=== PATIENT | male | born 1940 | race Caucasian/White ===

== ENCOUNTER 2017-05-19 19:39 | Observation (INO) | payer MEDICARE, OTHER ==
[2017-05-19] MEDS ORDERED: Budesonide 0.5 MG/2 ML Neb Susp ONE (19:51)
[2017-05-19] MEDS ORDERED: methylPREDNISolone Sodium Succinate 125 MG/2 ML SDV ONE (19:52)
[2017-05-19] MEDS ORDERED: Budesonide 0.5 MG/2 ML Neb Susp NEB ONE (20:00)
[2017-05-19] MEDS ORDERED: methylPREDNISolone Sodium Succinate 125 MG/2 ML SDV IVPUSH ONE (20:00)
--- NOTE | 2017-05-19 20:11 | EDM.PDOC ---
ED HPI GENERAL MEDICAL PROBLEM - General Chief Complaint: Respiratory Problem Stated Complaint: difficulty breathing Time Seen by Provider: 05/19/17 20:00 Source of Information: Reports: Patient, RN, Significant Other History Limitations: Reports: No Limitations - History of Present Illness INITIAL COMMENTS - FREE TEXT/NARRATIVE: Patient detention history of asthma-COPD was sitting at restaurant having dinner with girlfriend when he started coughing and was unable to stop coughing or catch his breath. He denies aspiration of food. He states did take his pulmicort this am and has used albuterol inhaler about 3 times since the incident. The ambulance was called and patient was transferred here for further evaluation and treatment. Onset: Today, Sudden Onset Date: 05/19/17 Onset Time: 19:00 Duration: Hour(s):, Chronic, Other (Past week with episodes of spasmodic coughing spells. ) Quality: Reports: Same as Previous Episode Severity: Mild Improves with: Reports: Rest, Other (Sitting on floor) Worsens with: Reports: Movement Associated Symptoms: Reports: Cough. Denies: Chest Pain, cough w sputum Treatments SORTER PRICER: Reports: Home Treatments, Other (see below) Other Treatments SORTER PRICER: albuterol treatments x2 with oxygen per non-rebreather mask - Related Data Allergies Allergy/AdvReac Type Severity Reaction Status Date / Time No Known Allergies Allergy Verified 05/19/17 19:51 Past Medical History HEENT History: Reports: Impaired Vision Cardiovascular History: Reports: Hypertension, SOB on Exertion Respiratory History: Reports: Asthma, COPD, SOB Gastrointestinal History: Reports: Other (See Below) (Stomach Cancer) Genitourinary History: Reports: Prostate Disorder Oncologic (Cancer) History: Reports: Prostate Dermatologic History: Reports: None Social & Family History - Family History Family Medical History: Noncontributory - Tobacco Use Smoking Status *Q: Former Smoker Tobacco Use Within Last Twelve Months: No Years of Tobacco use: 50 Used Tobacco, but Quit: Yes - Tobacco Core Measures Tobacco Use/Smoking Within Last 30 Days: Yes - Caffeine Use Caffeine Use: Reports: Coffee - Alcohol Use Alcohol Use History: Yes Date/Time of Last Drink Comment: today 3 beers and mixed drink Alcohol Use in Last Twelve Months: Yes - Recreational Drug Use Recreational Drug Use: No - Living Situation & Occupation Living situation: Reports: Occupation: Retired ([employer]) ED ROS GENERAL - Review of Systems Review Of Systems: See Below Constitutional: Reports: No Symptoms HEENT: Reports: No Symptoms Respiratory: Reports: Shortness of Breath, Wheezing, Cough Cardiovascular: Reports: No Symptoms Endocrine: Reports: No Symptoms GI/Abdominal: Reports: No Symptoms : Reports: No Symptoms Musculoskeletal: Reports: No Symptoms Skin: Reports: No Symptoms Neurological: Reports: No Symptoms Psychiatric: Reports: No Symptoms Hematologic/Lymphatic: Reports: No Symptoms Immunologic: Reports: No Symptoms ED EXAM, GENERAL - Physical Exam Exam: See Below Exam Limited By: No Limitations General Appearance: Alert, WD/WN, Mild Distress Eye Exam: Bilateral Eye: EOMI, Normal Fundi, Normal Inspection, Other ( Conjunctiva Injected bilaterally) Ears: Normal External Exam Ear Exam: Bilateral Ear: Auricle Normal, Canal Normal, TM normal Nose: Normal Inspection, Normal Mucosa, No Blood Throat/Mouth: Normal Inspection, Normal Lips, Normal Teeth, Normal Gums, Normal Oropharynx, Normal Voice, No Airway Compromise Head: Atraumatic, Normocephalic Neck: Normal Inspection, Supple, Non-Tender, Full Range of Motion Respiratory/Chest: Decreased Breath Sounds, Wheezing (xpiratory), Accessory Muscle Use, Other (Barrel Chested) Cardiovascular: Normal Peripheral Pulses, Regular Rate, Rhythm, No Edema, No JVD Peripheral Pulses: 2+: Radial (L), Radial (R), Dorsalis Pedis (L), Dorsalis Pedis (R) GI/Abdominal: Non-Tender (Male) Exam: Deferred Rectal (Males) Exam: Deferred Back Exam: Normal Inspection, Full Range of Motion Extremities: Normal Inspection, Normal Range of Motion, Non-Tender, No Pedal Edema, Normal Capillary Refill. No: Rashid's Sign, Leg Pain Neurological: Alert, Oriented, CN II-XII Intact, Normal Cognition, Normal Gait, Normal Reflexes, No Motor/Sensory Deficits Psychiatric: Normal Affect, Normal Mood Skin Exam: Warm, Dry, Intact, Normal Color, No Rash Lymphatic: No Adenopathy Course - Vital Signs Last Recorded V/S: Last Vital Signs Temp 36.6 C 05/19/17 20:15 Pulse 65 05/19/17 20:28 Resp 24 H 05/19/17 20:28 BP 128/65 05/19/17 20:15 Pulse Ox 98 05/19/17 20:28 - Orders/Labs/Meds Orders: Active Orders 24 hr Category Date Time Status RT Aerosol Therapy [RC] ASDIRECTED Care 05/19/17 20:00 Active RT Post Treatment Assessment [RC] Click To Edit Care 05/19/17 20:25 Active RT Pre-Treatment Assessment [RC] Click To Edit Care 05/19/17 20:25 Active Chest 2V [CR] Stat Exams 05/19/17 20:04 Taken DD [D-DIMER QUANTITATIVE] [COAG] Stat Lab 05/19/17 20:03 Ordered Levofloxacin/Dextrose 5%-Water [Levaquin in D5W 500 MG/ Med 05/19/17 20:26 Active 100 ML] 500 mg Premix Bag 1 bag IV ONETIME Medication Orders Levofloxacin/Dextrose 500 mg/ (Premix) 100 mls @ 100 mls/hr IV ONETIME ONE Stop: 05/19/17 21:25 Last Admin: 05/19/17 20:33 Dose: 100 mls/hr Labs: Laboratory Tests 05/19/17 05/19/17 Range/Units 20:12 20:12 WBC 7.8 (5.0-10.0) 10^3/uL RBC 3.96 L (4.50-6.00) 10^6/uL Hgb 11.7 L (14.0-18.0) g/dL Hct 33.7 L (40.0-54.0) % MCV 85.1 (82.0-94.0) fL MCH 29.5 (27.0-32.0) pg MCHC 34.7 (33.0-38.0) g/dL RDW Coeff of Gabriel 13.0 (11.0-15.0) % Plt Count 178 (150-400) 10^3/uL Neut % (Auto) 43.8 (35-85) % Lymph % (Auto) 37.5 (10-55) % Page % (Auto) 10.5 (0-16) % Eos % (Auto) 7.7 H (0-5) % Baso % (Auto) 0.5 (0-3) % Neut # (Auto) 3.42 (1.80-7.00) 10^3/uL Lymph # (Auto) 2.93 (1.00-4.80) 10^3/uL Page # (Auto) 0.82 H (0.00-0.80) 10^3/uL Eos # (Auto) 0.60 H (0.00-0.45) 10^3/uL Baso # (Auto) 0.04 10^3/uL Sodium 133 L (136-145) mEq/L Potassium 4.0 (3.5-5.0) mEq/L Chloride 97 L (98-106) mEq/L Carbon Dioxide 25 (21-32) mmol/L BUN 18 (7-18) mg/dL Creatinine 1.4 H (0.7-1.3) mg/dL Est Cr Clr Drug Dosing 33.58 mL/min Estimated GFR (MDRD) 49 L (>=60) mL/min Glucose 105 H (75-99) mg/dL Calcium 8.9 (8.4-10.1) mg/dL Total Bilirubin 0.5 (0.0-1.0) mg/dL AST 26 (15-37) U/L ALT 28 (12-78) U/L Alkaline Phosphatase 61 (46-116) U/L C-Reactive Protein < 0.2 L (0.2-0.8) mg/dL Total Protein 6.6 (6.4-8.2) g/dL Albumin 3.5 (3.4-5.0) g/dL Meds: Medications Generic Name Dose Route Start Last Admin Trade Name Freq PRN Reason Stop Dose Admin Levofloxacin/Dextrose 500 mg/ 100 mls @ 100 mls/hr 05/19/17 20:26 05/19/17 20 :33 Premix IV 05/19/17 21:25 100 mls/hr ONETIME ONE Administration Discontinued Medications Generic Name Dose Route Start Last Admin Trade Name Freq PRN Reason Stop Dose Admin Budesonide 0.5 mg 05/19/17 20:00 05/19/17 20:04 Pulmicort NEB 05/19/17 20:01 0.5 mg ONETIME ONE Administration Budesonide Confirm 05/19/17 19:51 05/19/17 20:04 Pulmicort Administered 05/19/17 19:52 Not Given Dose 0.5 mg .ROUTE .STK-MED ONE Ipratropium [place] 0.5 mg 05/19/17 20:25 05/19/17 20:27 Atrovent NEB 05/19/17 20:26 0.5 mg ONETIME ONE Administration Ipratropium [place] Confirm 05/19/17 20:18 05/19/17 20:31 Atrovent Administered 05/19/17 20:19 Not Given Dose 0.5 mg .ROUTE .STK-MED ONE Methylprednisolone Sodium Succinate Confirm 05/19/17 19:52 05/19/17 20:04 Solu-Medrol Administered 05/19/17 19:53 Not Given Dose 125 mg .ROUTE .STK-MED ONE Methylprednisolone Sodium Succinate 125 mg 05/19/17 20:00 05/19/17 20:04 Solu-Medrol IVPUSH 05/19/17 20:01 125 mg STAT ONE Administration Departure - Departure Time of Disposition: 20:46 Disposition: Refer to Observation Clinical Impression: Exacerbation of asthma - Discharge Information Instructions: Chronic Obstructive Pulmonary Disease Exacerbation, [id number] Forms: ED Department Discharge - My Orders Last 24 Hours: My Active Orders 05/19/17 20:00 RT Aerosol Therapy [RC] ASDIRECTED 05/19/17 20:03 DD [D-DIMER QUANTITATIVE] [COAG] Stat 05/19/17 20:04 Chest 2V [CR] Stat 05/19/17 20:25 RT Post Treatment Assessment [RC] Click To Edit RT Pre-Treatment Assessment [RC] Click To Edit 05/19/17 20:26 Levofloxacin/Dextrose 5%-Water [Levaquin in D5W 500 MG/100 ML] 500 mg Premix Bag 1 bag IV ONETIME - Assessment/Plan Last 24 Hours: My Active Orders 05/19/17 20:00 RT Aerosol Therapy [RC] ASDIRECTED 05/19/17 20:03 DD [D-DIMER QUANTITATIVE] [COAG] Stat 05/19/17 20:04 Chest 2V [CR] Stat 05/19/17 20:25 RT Post Treatment Assessment [RC] Click To Edit RT Pre-Treatment Assessment [RC] Click To Edit 05/19/17 20:26 Levofloxacin/Dextrose 5%-Water [Levaquin in D5W 500 MG/100 ML] 500 mg Premix Bag 1 bag IV ONETIME Assessment:: 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 He denies aspiration of food. He denies chest pain or diaphoresis.He states did take his pulmicort this am and has used albuterol inhaler about 3 times since the incident. The ambulance was called and patient was transferred here for further evaluation and treatment. SVN with Pulmicort .5 mg given as well as Solumedrol 125 mg IV. Patient able to converse in full sentences. Saturations maintain 99% with noted expiratory wheezing. Persistant dry hacking cough noted. Incontinence of urine noted. Plan: Will admit for observation and aggressive pulmonary rehabilitation. IV Steroids IV antibiotic therapy Duo nebulizer treatment. Supplemental oxygen. Patient agrees with plan.
[2017-05-19] MEDS ORDERED: Ipratropium 0.02% 0.5 MG/2.5 ML Neb Soln ONE (20:18)
[2017-05-19] MEDS ORDERED: Ipratropium 0.02% 0.5 MG/2.5 ML Neb Soln NEB ONE (20:25)
[2017-05-19] MEDS ORDERED: Levofloxacin/Dextrose 5%-Water 500 MG in Premix Bag 1 BAG IV ONE (20:26)
[2017-05-19 20:29] LABS: CHLORIDE,CL 97 mEq/L (98-106); SODIUM,NA 133 mEq/L (136-145)
[2017-05-20] MEDS ORDERED: Sodium Chloride 0.9% 10 ML Syringe FLUSH PRN (00:17)
[2017-05-20] MEDS ORDERED: Enalapril 5 MG Tab PO SCH (08:00)
[2017-05-20] MEDS ORDERED: Verapamil 180 MG Tab.ER PO SCH (08:00)
[2017-05-20] MEDS: Cholecalciferol (Vitamin D3) 1,000 Unit Tab PO SCH (08:31)
[2017-05-20] MEDS: Enoxaparin 30 MG/0.3 ML Syringe SUBCUT SCH (08:31)
[2017-05-20] MEDS: PTOM-Hydrochlorothiazide 25 MG Tab PO SCH (08:31)
[2017-05-20] MEDS: Aspirin 81 MG Tab.EC PO SCH (08:32)
[2017-05-20] MEDS: Albuterol/Ipratropium 3.0-0.5 MG/3 ML Neb Soln NEB SCH ×4 (08:32→21:13)
[2017-05-20] MEDS: methylPREDNISolone Sodium Succinate 125 MG/2 ML SDV IVPUSH SCH ×2 (08:32→20:10)
--- NOTE | 2017-05-20 09:13 | PN ---
DATE: 05/20/2017 S: Jeovanny Earl is a 76-year-old gentleman came in with acute shortness of breath. He says he feels better today. O: NECK: Supple. CHEST: Occasional wheeze. CARDIAC: Sounds good. EXTREMITIES: No edema. ASSESSMENT: ASTHMA AND CHRONIC OBSTRUCTIVE PULMONARY DISEASE. P: Again, some IV steroids today and then we will get appropriate lab work including proBNP, probably an echo on him. TANNA/MARTITA /[id number]
[2017-05-21 07:19] VITALS: BP 158/79
[2017-05-21] MEDS ORDERED: VERAPAMIL 120 MG PO SCH (08:00)
[2017-05-21] MEDS ORDERED: ENALAPRIL 20 MG PO SCH (08:00)
[2017-05-21] MEDS: PTOM-Hydrochlorothiazide 25 MG Tab PO SCH (08:08)
[2017-05-21] MEDS: Aspirin 81 MG Tab.EC PO SCH (08:08)
[2017-05-21] MEDS: Enoxaparin 30 MG/0.3 ML Syringe SUBCUT SCH (08:09)
[2017-05-21] MEDS: methylPREDNISolone Sodium Succinate 125 MG/2 ML SDV IVPUSH SCH (08:11)
[2017-05-21] MEDS: Cholecalciferol (Vitamin D3) 1,000 Unit Tab PO SCH (08:12)
[2017-05-21] MEDS: Albuterol/Ipratropium 3.0-0.5 MG/3 ML Neb Soln NEB SCH (08:13)
--- NOTE | 2017-05-21 12:18 | DISCH ---
REASON FOR HOSPITALIZATION: Jeovanny Earl is an elderly gentleman came in with some mild asthma, COPD exacerbation. He is now started on IV fluids to IV steroids, responded nicely at the time of discharge. His lungs were relatively clear, said he felt great. Lab here in the hospital, CBC okay as his hemoglobin little low at 11.7. D-dimer mildly elevated at 0.32 and 0.36, probably from COPD. He had a low magnesium, so we did start him on magnesium oxide 500 mg daily. Renal functions were normal. Other than that he had a mildly elevated creatinine at 1.4. Chest x-ray revealed just some mild chronic inflammation. DISPOSITION: The patient is now discharged home. We will see him back in the clinic in about a week and then we will go over him. DISCHARGE MEDICATIONS: Home medications plus prednisone 20 daily for 5 days. DISCHARGE DIAGNOSIS: 1. ASTHMA WITH CHRONIC OBSTRUCTIVE PULMONARY DISEASE EXACERBATION. 2. HYPERTENSION. YOEL /[id number]
== END 2017-05-21 10:50 | disposition home or self-care (01) ==
LOC: CC.ED 19:39 → UNDOADMOB 20:49 → CC.MS 20:49 → CC.ED 21:04 → CC.MS 21:04 → UNDOADMOB 21:04 → CC.MS 23:56
PROVIDERS: ADMIT Nurse Practitioner; ATTEND General Practice
DX: J44.1 Chronic obstructive pulmonary disease with (acute) exacerbation (principal); I10 Essential (primary) hypertension; Z87.891 Personal history of nicotine dependence; Z79.82 Long term (current) use of aspirin; Z79.899 Other long term (current) drug therapy
CPT/HCPCS: 36415; 71020; 80053; 83735; 83880; 84443; 85025; 85379; 86140; 94640; 96374; 96375; 99285; A9270; J1650; J1956; J2930; 96365; 96372; 96376; 99217; 99220; 99225; G0378

== ENCOUNTER 2018-02-09 21:35 | Emergency (ER) | payer MEDICARE, OTHER, SELFPAY ==
[2018-02-09 22:15] VITALS: BP 163/77
[2018-02-09 22:23] LABS: CHLORIDE,CL 102 mEq/L (98-106); SODIUM,NA 138 mEq/L (136-145)
--- NOTE | 2018-02-09 22:27 | EDM.PDOC ---
ED HPI GENERAL MEDICAL PROBLEM - General Chief Complaint: Respiratory Problem Stated Complaint: difficulty breathing Time Seen by Provider: 02/09/18 21:50 Source of Information: Reports: Patient - History of Present Illness INITIAL COMMENTS - FREE TEXT/NARRATIVE: Jeovanny is a 77 year old male with PMH of COPD and hypertension who presents to the ED via [facility] with c/o shortness of breath. He reports that this evening he was just sitting there when he got more short of breath than normal. He reports it happened kind of suddenly. He reports that he then used his Symbicort inhaler. That didn't help much so he did a Duoneb. He reports he was still feeling SOB so he used his rescue inhaler. He then went and sat outside and was still feeling SOB, so he called EMS. He reports that he does admit that he got kind of anxious and this maybe contributed to his shortness of breath. He reports he has been feeling well. Reports he always has a chronic productive cough. Denies any chest pain, fever, chills, weakness, nausea, vomiting, abdominal pain, diarrhea, sinus congestion. ROS otherwise negative. Onset: Today, Sudden Onset Date: 02/09/18 Onset Time: 20:30 Location: Reports: Chest Improves with: Reports: Medication Associated Symptoms: Reports: Cough, cough w sputum, Shortness of Breath. Denies: Confusion, Chest Pain, Diaphoresis, Fever/Chills, Headaches, Loss of Appetite, Malaise, Nausea/Vomiting, Rash, Seizure, Syncope, Weakness - Related Data Allergies Allergy/AdvReac Type Severity Reaction Status Date / Time No Known Allergies Allergy Verified 02/09/18 21:50 Home Meds: Home Meds Albuterol [Proventil HFA] 2 puff INH Q4H PRN 05/19/17 [History] Albuterol/Ipratropium [DuoNeb 3.0-0.5 MG/3 ML] 3 ml NEB QIDRT neb 05/19/17 [Rx] Aspirin [Adult Low Dose Aspirin EC] 81 mg PO DAILY 05/19/17 [History] Budesonide/Formoterol Fumarate [Symbicort 160-4.5 Mcg Inhaler] 1 puff INH BID [History] Cholecalciferol (Vitamin D3) [Vitamin D3] 5,000 unit PO DAILY 05/19/17 [History] Hydrochlorothiazide 12.5 mg PO DAILY 05/19/17 [History] Enalapril [Vasotec] 20 mg PO DAILY 05/20/17 [History] Verapamil HCl [Calan SR] 60 mg PO DAILY 05/20/17 [History] Prednisone [IMW: predniSONE] 40 mg PO WITHBREAKFAST 5 Days #10 tab 02/09/18 [Rx] Past Medical History HEENT History: Reports: Impaired Vision Cardiovascular History: Reports: Hypertension, SOB on Exertion Respiratory History: Reports: Asthma, COPD, SOB Gastrointestinal History: Reports: GERD, PUD Genitourinary History: Reports: Prostate Disorder, Urinary Incontinence Musculoskeletal History: Reports: Arthritis, Back Pain, Chronic, Fracture Neurological History: Reports: Concussion Psychiatric History: Reports: Anxiety, Other (See Below) Other Psychiatric History: perpetual stress Oncologic (Cancer) History: Reports: Prostate Dermatologic History: Reports: None - Past Surgical History Cardiovascular Surgical History: Reports: None Respiratory Surgical History: Reports: None GI Surgical History: Reports: Appendectomy, Colonoscopy, Polypectomy, Other ( See Below) Other GI Surgeries/Procedures: "removed part of stomach with ulcers" Male Surgical History: Reports: Prostatectomy Neurological Surgical History: Reports: None Musculoskeletal Surgical History: Reports: None Social & Family History - Family History Family Medical History: Noncontributory - Tobacco Use Smoking Status *Q: Former Smoker Years of Tobacco use: 50 Used Tobacco, but Quit: Yes Month/Year Tobacco Last Used: 10 - Caffeine Use Caffeine Use: Reports: Coffee - Alcohol Use Days Per Week of Alcohol Use: 7 Number of Drinks Per Day: 4 Total Drinks Per Week: 28 - Recreational Drug Use Recreational Drug Use: No - Living Situation & Occupation Living situation: Reports: Occupation: Retired ( [employer]) ED ROS GENERAL - Review of Systems Review Of Systems: ROS reveals no pertinent complaints other than HPI. ED EXAM, GENERAL - Physical Exam Exam: See Below Exam Limited By: No Limitations General Appearance: Alert, WD/WN, No Apparent Distress Head: Atraumatic, Normocephalic Neck: Normal Inspection, Supple, Non-Tender, Full Range of Motion Respiratory/Chest: No Respiratory Distress, No Accessory Muscle Use, Chest Non- Tender, Decreased Breath Sounds, Prolonged Expiration. No: Wheezing, Accessory Muscle Use Cardiovascular: Normal Peripheral Pulses, Regular Rate, Rhythm, No Edema, No Gallop, No JVD, No Murmur, No Rub GI/Abdominal: Normal Bowel Sounds, Soft, Non-Tender, No Organomegaly, No Distention, No Abnormal Bruit, No Mass Back Exam: Normal Inspection, Full Range of Motion, NT Extremities: Normal Inspection, Normal Range of Motion, Non-Tender, Normal Capillary Refill, No Pedal Edema Neurological: Alert, Oriented, CN II-XII Intact, Normal Cognition, Normal Gait, Normal Reflexes, No Motor/Sensory Deficits Psychiatric: Normal Affect, Normal Mood Skin Exam: Warm, Dry, Intact, Normal Color, No Rash Lymphatic: No Adenopathy Course - Vital Signs Last Recorded V/S: Last Vital Signs Temp 97.8 F 02/09/18 21:47 Pulse 72 02/09/18 22:10 Resp 22 H 02/09/18 22:10 BP 163/77 H 02/09/18 22:10 Pulse Ox 97 02/09/18 22:10 - Orders/Labs/Meds Orders: Active Orders 24 hr Category Date Time Status EKG Documentation Completion [RC] STAT Care 02/09/18 21:35 Active Chest 2V [CR] Stat Exams 02/09/18 21:54 Taken EKG 12 Lead [EK] Routine Ther 02/09/18 21:54 Ordered Labs: Laboratory Tests 02/09/18 02/09/18 02/09/18 Range/Units 22:00 22:00 22:00 WBC 6.4 (5.0-10.0) 10^3/uL RBC 4.16 L (4.50-6.00) 10^6/uL Hgb 12.2 L (14.0-18.0) g/dL Hct 35.6 L (40.0-54.0) % MCV 85.6 (82.0-94.0) fL MCH 29.3 (27.0-32.0) pg MCHC 34.3 (33.0-38.0) g/dL RDW Coeff of Gabriel 12.7 (11.0-15.0) % Plt Count 240 (150-400) 10^3/uL Neut % (Auto) 53.9 (35-85) % Lymph % (Auto) 29.1 (10-55) % [place] % (Auto) 10.9 (0-16) % Eos % (Auto) 5.6 H (0-5) % Baso % (Auto) 0.5 (0-3) % Neut # (Auto) 3.47 (1.80-7.00) 10^3/uL Lymph # (Auto) 1.87 (1.00-4.80) 10^3/uL [place] # (Auto) 0.70 (0.00-0.80) 10^3/uL Eos # (Auto) 0.36 (0.00-0.45) 10^3/uL Baso # (Auto) 0.03 10^3/uL D-Dimer, Quantitative 0.55 H (0.00-0.50) Sodium 138 (136-145) mEq/L Potassium 3.6 (3.5-5.0) mEq/L Chloride 102 (98-106) mEq/L Carbon Dioxide 27 (21-32) mmol/L BUN 23 H (7-18) mg/dL Creatinine 1.5 H (0.7-1.3) mg/dL Est Cr Clr Drug Dosing 1.33 mL/min Estimated GFR (MDRD) 45 L (>=60) mL/min Glucose 143 H D (75-99) mg/dL Calcium 9.1 (8.4-10.1) mg/dL Total Bilirubin 0.4 (0.0-1.0) mg/dL AST 23 (15-37) U/L ALT 26 (12-78) U/L Alkaline Phosphatase 85 (46-116) U/L Lactate Dehydrogenase 159 (100-190) U/L Creatine Kinase 86 (35-232) U/L Troponin I < 0.017 (0.00-0.06) ng/mL C-Reactive Protein 0.7 (0.2-0.8) mg/dL Total Protein 7.0 (6.4-8.2) g/dL Albumin 3.5 (3.4-5.0) g/dL - Re-Assessments/Exams Free Text/Narrative Re-Assessment/Exam: Labs, EKG and CXR results discussed with patient and . Labs all stable. EKG shows NSR with RBBB. CXR looks clear other than COPD. Departure - Departure Time of Disposition: 22:48 Disposition: Home, Self-Care 01 Condition: Good Clinical Impression: COPD exacerbation - Discharge Information Instructions: Shortness of Breath, Adult, [id number], Chronic Obstructive Pulmonary Disease, [id number] Referrals: Linnea Nava PA-C [ED Midlevel Provider] - Forms: ED Department Discharge Additional Instructions: Continue previously prescribed inhalers and nebulizers as directed Prednisone daily x 5 days. Script was sent to [facility] in [place]. 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
== END 2018-02-09 23:00 | disposition home or self-care (01) ==
LOC: CC.ED 21:35
DX: J44.1 Chronic obstructive pulmonary disease with (acute) exacerbation (principal); I10 Essential (primary) hypertension; Z79.899 Other long term (current) drug therapy; Z87.891 Personal history of nicotine dependence
CPT/HCPCS: 36415; 71046; 80053; 82550; 83615; 84484; 85025; 85379; 86140; 93005; 99285

== ENCOUNTER 2018-07-30 18:32 | Inpatient (IN) | payer MEDICARE, SELFPAY ==
[~2018-07-30 18:32] MED LIST: Albuterol/Ipratropium 3.0-0.5 MG/3 ML Neb Soln NEB ONE; methylPREDNISolone Sodium Succinate 125 MG/2 ML SDV ONE
[2018-07-30] MEDS ORDERED: methylPREDNISolone Sodium Succinate 125 MG/2 ML SDV IVPUSH ONE (18:36)
[2018-07-30 19:08] LABS: CHLORIDE,CL 100 mEq/L (98-106); SODIUM,NA 138 mEq/L (136-145)
--- NOTE | 2018-07-30 20:23 | EDM.PDOC ---
ED HPI GENERAL MEDICAL PROBLEM - General Chief Complaint: Respiratory Problem Stated Complaint: SOB Time Seen by Provider: 07/30/18 18:32 Source of Information: Reports: Patient, EMS History Limitations: Reports: Respiratory Distress - History of Present Illness INITIAL COMMENTS - FREE TEXT/NARRATIVE: Patient presents per EMS with complaints of shortness of breath. States started struggling more about an hour ago. Did use his nebulizer treatment but didn't seem to notice any improvement. EMS did give a neb as well and put on CPAP and his sats did improve. He denies any fevers. Has been using his nebs and inhalers as scheduled. No increased cough from his norm. No chest pain. No increase in edema. Does take HCTZ and feels that that controls his swelling. Onset: Today, Gradual Duration: Hour(s): Location: Reports: Chest Severity: Severe Improves with: Reports: Medication Worsens with: Reports: Movement Associated Symptoms: Reports: Cough, Shortness of Breath. Denies: Confusion, Chest Pain, Fever/Chills, Nausea/Vomiting Treatments HAND POTTER: Reports: Breathing Treatments, Oxygen - Related Data Allergies Allergy/AdvReac Type Severity Reaction Status Date / Time No Known Allergies Allergy Verified 07/30/18 18:56 Home Meds: Home Meds Albuterol [Proventil HFA] 2 puff INH Q4H PRN 05/19/17 [History] Albuterol/Ipratropium [DuoNeb 3.0-0.5 MG/3 ML] 3 ml NEB QIDRT neb 05/19/17 [Rx] Aspirin [Adult Low Dose Aspirin EC] 81 mg PO DAILY 05/19/17 [History] Budesonide/Formoterol Fumarate [Symbicort 160-4.5 Mcg Inhaler] 2 puff INH BID [History] Cholecalciferol (Vitamin D3) [Vitamin D3] 5,000 unit PO DAILY 05/19/17 [History] Hydrochlorothiazide 12.5 mg PO DAILY 05/19/17 [History] Enalapril [Vasotec] 20 mg PO DAILY 05/20/17 [History] Verapamil HCl [Calan SR] 60 mg PO DAILY 05/20/17 [History] Past Medical History HEENT History: Reports: Impaired Vision Cardiovascular History: Reports: Hypertension, SOB on Exertion Respiratory History: Reports: Asthma, COPD, SOB Gastrointestinal History: Reports: GERD, PUD Genitourinary History: Reports: Prostate Disorder, Urinary Incontinence Musculoskeletal History: Reports: Arthritis, Back Pain, Chronic, Fracture Neurological History: Reports: Concussion Psychiatric History: Reports: Anxiety, Other (See Below) Other Psychiatric History: perpetual stress Oncologic (Cancer) History: Reports: Prostate Dermatologic History: Reports: None - Past Surgical History Cardiovascular Surgical History: Reports: None Respiratory Surgical History: Reports: None GI Surgical History: Reports: Appendectomy, Colonoscopy, Polypectomy, Other ( See Below) Other GI Surgeries/Procedures: "removed part of stomach with ulcers" Male Surgical History: Reports: Prostatectomy Neurological Surgical History: Reports: None Musculoskeletal Surgical History: Reports: None Social & Family History - Family History Family Medical History: Noncontributory - Tobacco Use Smoking Status *Q: Former Smoker Used Tobacco, but Quit: Yes Month/Year Tobacco Last Used: 12 years ago - Caffeine Use Caffeine Use: Reports: Coffee - Alcohol Use Days Per Week of Alcohol Use: 3 Number of Drinks Per Day: 2 Total Drinks Per Week: 6 - Recreational Drug Use Recreational Drug Use: No - Living Situation & Occupation Living situation: Reports: Occupation: Retired ([employer]) ED ROS GENERAL - Review of Systems Review Of Systems: See Below Constitutional: Reports: Malaise, Weakness, Fatigue. Denies: Fever, Chills HEENT: Denies: Ear Pain, Nose Pain, Throat Pain, Vertigo, Vision Change Respiratory: Reports: Shortness of Breath, Wheezing, Cough Cardiovascular: Denies: Chest Pain, Edema, Lightheadedness Endocrine: Reports: Fatigue GI/Abdominal: Denies: Abdominal Pain, Black Stool, Bloody Stool, Diarrhea, Nausea, Vomiting : Reports: No Symptoms Musculoskeletal: Reports: No Symptoms Skin: Reports: No Symptoms Neurological: Reports: Weakness ED EXAM, GENERAL - Physical Exam Exam: See Below Exam Limited By: Respiratory Distress General Appearance: Alert, WD/WN, Moderate Distress Ears: Normal External Exam, Normal TMs Nose: Normal Inspection, Normal Mucosa, No Blood Throat/Mouth: Normal Inspection, Normal Oropharynx Head: Normocephalic Neck: Normal Inspection, Supple, Non-Tender Respiratory/Chest: Respiratory Distress, Wheezing Cardiovascular: Regular Rate, Rhythm GI/Abdominal: Normal Bowel Sounds, Soft, Non-Tender Extremities: Normal Inspection, No Pedal Edema Neurological: Alert, Oriented Skin Exam: Warm, Dry Course - Vital Signs Last Recorded V/S: Last Vital Signs Temp 97.5 F 07/30/18 20:08 Pulse 91 07/30/18 20:08 Resp 20 07/30/18 20:08 BP 135/57 L 07/30/18 20:08 Pulse Ox 94 L 07/30/18 20:08 - Orders/Labs/Meds Orders: Active Orders 24 hr Category Date Time Status RT Aerosol Therapy [RC] ASDIRECTED Care 07/30/18 19:30 Active Chest 1V Frontal [CR] Stat Exams 07/30/18 18:37 Taken EKG 12 Lead [EK] Stat Ther 07/30/18 18:37 Stop Req Medication Orders Acetaminophen (Tylenol) 650 mg PO Q4H PRN PRN Reason: Pain (Mild 1-3)/fever Albuterol/Ipratropium (Duoneb 3.0-0.5 Mg/3 Ml) 3 ml NEB QIDRT DYLAN Albuterol/Ipratropium (Duoneb 3.0-0.5 Mg/3 Ml) 3 ml NEB Q4H PRN PRN Reason: Dyspnea Aspirin (Halfprin) 81 mg PO DAILY [facility] Ceftriaxone Sodium (Rocephin) 1 gm IVPUSH Q24H [facility] Last Admin: 07/30/18 21:41 Dose: 1 gm Cholecalciferol (Vitamin D3) 5,000 units PO DAILY [facility] Enalapril Maleate (Vasotec) 20 mg PO DAILY [facility] Enoxaparin Sodium (Lovenox) 40 mg SUBCUT Q24H [facility] Last Admin: 07/30/18 21:46 Dose: 40 mg Hydrochlorothiazide (Hydrochlorothiazide) 12.5 mg PO DAILY [facility] Azithromycin 500 mg/ Sodium (Chloride) 250 mls @ 250 mls/hr IV Q24H [facility] Last Admin: 07/30/18 21:47 Dose: 250 mls/hr Methylprednisolone Sodium Succinate (Solu-Medrol) 62.5 mg IVPUSH Q12H [facility] Mometasone Furoate/Formoterol Fumar (Dulera 200-5 Mcg) 2 puff IH BID [facility] Non-Formulary Medication (Verapamil Hcl [Calan Sr]) 60 mg PO DAILY [facility] Ondansetron HCl (Zofran Odt) 4 mg PO Q4H PRN PRN Reason: nausea, able to take PO Sodium Chloride (Saline Flush) 10 ml FLUSH ASDIRECTED PRN PRN Reason: Keep Vein Open Temazepam (Restoril) 15 mg PO BEDTIME PRN PRN Reason: Sleep Labs: Laboratory Tests 07/30/18 07/30/18 07/30/18 Range/Units 18:45 18:45 18:45 WBC 8.8 (5.0-10.0) 10^3/uL RBC 4.22 L (4.50-6.00) 10^6/uL Hgb 12.3 L (14.0-18.0) g/dL Hct 35.4 L (40.0-54.0) % MCV 83.9 (82.0-94.0) fL MCH 29.1 (27.0-32.0) pg MCHC 34.7 (33.0-38.0) g/dL RDW Coeff of Gabriel 13.6 (11.0-15.0) % Plt Count 216 (150-400) 10^3/uL Neut % (Auto) 49.3 (35-85) % Lymph % (Auto) 37.1 (10-55) % [place] % (Auto) 9.2 (0-16) % Eos % (Auto) 4.1 (0-5) % Baso % (Auto) 0.3 (0-3) % Neut # (Auto) 4.31 (1.80-7.00) 10^3/uL Lymph # (Auto) 3.25 (1.00-4.80) 10^3/uL [place] # (Auto) 0.81 H (0.00-0.80) 10^3/uL Eos # (Auto) 0.36 (0.00-0.45) 10^3/uL Baso # (Auto) 0.03 10^3/uL D-Dimer, Quantitative 0.46 (0.00-0.50) Sodium 138 (136-145) mEq/L Potassium 4.0 (3.5-5.0) mEq/L Chloride 100 (98-106) mEq/L Carbon Dioxide 25 (21-32) mmol/L BUN 23 H (7-18) mg/dL Creatinine 1.5 H (0.7-1.3) mg/dL Est Cr Clr Drug Dosing 33.44 mL/min Estimated GFR (MDRD) 45 L (>=60) mL/min Glucose 105 H D (75-99) mg/dL Calcium 9.2 (8.4-10.1) mg/dL Total Bilirubin 0.6 (0.0-1.0) mg/dL AST 39 H (15-37) U/L ALT 43 (12-78) U/L Alkaline Phosphatase 77 (46-116) U/L Lactate Dehydrogenase 180 (100-190) U/L Creatine Kinase 165 (35-232) U/L Troponin I < 0.017 (0.00-0.06) ng/mL C-Reactive Protein < 0.2 L (0.2-0.8) mg/dL NT-Pro-B Natriuret Pep 147 (0-1000) pg/mL Total Protein 6.9 (6.4-8.2) g/dL Albumin 3.7 (3.4-5.0) g/dL Meds: Medications Generic Name Dose Route Start Last Admin Trade Name Freq PRN Reason Stop Dose Admin Acetaminophen 650 mg 07/30/18 20:58 Tylenol PO Q4H PRN Pain (Mild 1-3)/fever Albuterol/Ipratropium 3 ml 07/31/18 08:00 Duoneb 3.0-0.5 Mg/3 Ml NEB QIDRT DYLAN Albuterol/Ipratropium 3 ml 07/30/18 21:50 Duoneb 3.0-0.5 Mg/3 Ml NEB Q4H PRN Dyspnea Aspirin 81 mg 07/31/18 08:00 Halfprin PO DAILY [facility] Ceftriaxone Sodium 1 gm 07/30/18 21:00 07/30/18 21:41 Rocephin IVPUSH 1 gm Q24H DYLAN Administration Cholecalciferol 5,000 units 07/31/18 08:00 Vitamin D3 PO DAILY [facility] Enalapril Maleate 20 mg 07/31/18 08:00 Vasotec PO DAILY [facility] Enoxaparin Sodium 40 mg 07/30/18 21:00 07/30/18 21:46 Lovenox SUBCUT 40 mg Q24H DYLAN Administration Hydrochlorothiazide 12.5 mg 07/31/18 08:00 Hydrochlorothiazide PO DAILY [facility] Azithromycin 500 mg/ Sodium 250 mls @ 250 mls/hr 07/30/18 21:00 07/30/18 21: 47 Chloride IV 250 mls/hr Q24H DYLAN Administration Methylprednisolone Sodium Succinate 62.5 mg 07/31/18 08:00 Solu-Medrol IVPUSH Q12H [facility] Mometasone Furoate/Formoterol Fumar 2 puff 07/31/18 08:00 Dulera 200-5 Mcg IH BID DYLAN Non-Formulary Medication 60 mg 07/31/18 08:00 Verapamil Hcl [Calan Sr] PO DAILY [facility] Ondansetron HCl 4 mg 07/30/18 20:58 Zofran Odt PO Q4H PRN nausea, able to take PO Sodium Chloride 10 ml 07/30/18 20:58 Saline Flush FLUSH ASDIRECTED PRN Keep Vein Open Temazepam 15 mg 07/30/18 20:58 Restoril PO BEDTIME PRN Sleep Discontinued Medications Generic Name Dose Route Start Last Admin Trade Name Freq PRN Reason Stop Dose Admin Albuterol/Ipratropium 9 ml 07/30/18 18:32 07/30/18 19:31 Duoneb 3.0-0.5 Mg/3 Ml NEB 07/30/18 18:33 9 ml ONETIME ONE Administration Albuterol/Ipratropium 3 ml 07/30/18 21:23 07/30/18 21:49 Duoneb 3.0-0.5 Mg/3 Ml NEB 07/30/18 21:24 3 ml ONETIME ONE Administration Methylprednisolone Sodium Succinate 125 mg 07/30/18 18:36 07/30/18 18:36 Solu-Medrol IVPUSH 07/30/18 18:37 125 mg NOW ONE Administration Methylprednisolone Sodium Succinate Confirm 07/30/18 18:25 07/30/18 19:26 Solu-Medrol Administered 07/30/18 18:26 Not Given Dose 125 mg .ROUTE .STK-MED ONE Methylprednisolone Sodium Succinate 62.5 mg 07/30/18 20:58 07/30/18 22:09 Solu-Medrol IVPUSH Not Given Q12H [facility] - Re-Assessments/Exams Free Text/Narrative Re-Assessment/Exam: 07/30/18 Patient given consecutive neb treatments and solu medrol and did respond nicely. Oxygen sats maintaining at 95-96 on 2 liters after breathing under better control. Departure - Departure Time of Disposition: 19:20 Disposition: Admitted As Inpatient 64 Condition: Fair Clinical Impression: COPD exacerbation - Discharge Information *PRESCRIPTION DRUG MONITORING PROGRAM REVIEWED*: No *COPY OF PRESCRIPTION DRUG MONITORING REPORT IN PATIENT ARLIN: No - Problem List & Annotations (1) COPD exacerbation SNOMED Code(s): 454526356 Code(s): J44.1 - CHRONIC OBSTRUCTIVE PULMONARY DISEASE W (ACUTE) EXACERBATION Status: Acute Priority: High Current Visit: Yes - Problem List Review Problem List Initiated/Reviewed/Updated: Yes - My Orders Last 24 Hours: My Active Orders 07/30/18 18:37 Chest 1V Frontal [CR] Stat EKG 12 Lead [EK] Stat 07/30/18 19:30 RT Aerosol Therapy [RC] ASDIRECTED - Assessment/Plan Admission H&P: Please use this note as an admission H&P Last 24 Hours: My Active Orders 07/30/18 18:37 Chest 1V Frontal [CR] Stat EKG 12 Lead [EK] Stat 07/30/18 19:30 RT Aerosol Therapy [RC] ASDIRECTED Assessment:: COPD Exacerbation Plan: Patient admitted inpatient for COPD Exacerbation. Will start IV Solu Medrol, nebs, rocephin and zithromax.
[2018-07-30] MEDS ORDERED: Sodium Chloride 0.9% 10 ML Syringe FLUSH PRN (20:58)
[2018-07-30] MEDS ORDERED: Acetaminophen 325 MG Tab PO PRN (20:58)
[2018-07-30] MEDS ORDERED: methylPREDNISolone Sodium Succinate 125 MG/2 ML SDV IVPUSH SCH (20:58)
[2018-07-30] MEDS ORDERED: Ondansetron 4 MG Tab.DIS PO PRN (20:58)
[2018-07-30] MEDS ORDERED: Temazepam 15 MG Cap PO PRN (20:58)
[2018-07-30] MEDS ORDERED: Albuterol/Ipratropium 3.0-0.5 MG/3 ML Neb Soln NEB ONE (21:23)
[2018-07-30] MEDS: cefTRIAXone 1 GM Vial IVPUSH SCH (21:41)
[2018-07-30] MEDS: Enoxaparin 40 MG/0.4 ML Syringe SUBCUT SCH (21:46)
[2018-07-30] MEDS: Azithromycin 500 MG in Sodium Chloride 0.9% 250 ML IV SCH (21:47)
[2018-07-30] MEDS ORDERED: Albuterol/Ipratropium 3.0-0.5 MG/3 ML Neb Soln NEB PRN (21:50)
[2018-07-31 07:10] LABS: CHLORIDE,CL 103 mEq/L (98-106); SODIUM,NA 138 mEq/L (136-145)
[2018-07-31] MEDS: Albuterol/Ipratropium 3.0-0.5 MG/3 ML Neb Soln NEB SCH ×4 (08:25→19:41)
[2018-07-31] MEDS: Formoterol/Mometasone 200-5 MCG 8.8 GM Inhaler IH SCH ×2 (08:25→19:38)
[2018-07-31] MEDS: Hydrochlorothiazide 25 MG Tab PO SCH (08:26)
[2018-07-31] MEDS: Aspirin 81 MG Tab.EC PO SCH (08:26)
[2018-07-31] MEDS: Cholecalciferol (Vitamin D3) 1,000 Unit Tab PO SCH (08:26)
[2018-07-31] MEDS: Enalapril 5 MG Tab PO SCH (08:27)
[2018-07-31] MEDS: methylPREDNISolone Sodium Succinate 125 MG/2 ML SDV IVPUSH SCH ×2 (08:27→19:41)
[2018-07-31] MEDS: VERAPAMIL HCL 120 MG PO SCH (08:30)
--- NOTE | 2018-07-31 08:37 | PCM.PN ---
- General Info Date of Service: 07/31/18 Admission Dx/Problem (Free Text): COPD Exacerbation Functional Status: Reports: Pain Controlled, Tolerating Diet. Denies: Ambulating - Review of Systems General: Reports: Weakness. Denies: Fever, Fatigue, Malaise HEENT: Reports: Sinus Congestion, Rhinitis. Denies: Ear Pain Pulmonary: Reports: Shortness of Breath, Cough. Denies: Wheezing Cardiovascular: Denies: Chest Pain, Edema, Lightheadedness Gastrointestinal: Denies: Abdominal Pain, Nausea, Vomiting Genitourinary: Reports: No Symptoms Musculoskeletal: Reports: No Symptoms Skin: Reports: No Symptoms Neurological: Reports: No Symptoms - Patient Data Vitals - Most Recent: Last Vital Signs Temp 97.3 F 07/31/18 04:00 Pulse 85 07/31/18 04:00 Resp 20 07/31/18 04:00 BP 142/61 H 07/31/18 08:27 Pulse Ox 98 07/31/18 04:00 Weight - Most Recent: 144 lb 4.8 oz Lab Results Last 24 Hours: Laboratory Results - last 24 hr 07/30/18 07/30/18 07/30/18 Range/Units 18:45 18:45 18:45 WBC 8.8 (5.0-10.0) 10^3/uL RBC 4.22 L (4.50-6.00) 10^6/uL Hgb 12.3 L (14.0-18.0) g/dL Hct 35.4 L (40.0-54.0) % MCV 83.9 (82.0-94.0) fL MCH 29.1 (27.0-32.0) pg MCHC 34.7 (33.0-38.0) g/dL RDW Coeff of Gabriel 13.6 (11.0-15.0) % Plt Count 216 (150-400) 10^3/uL Neut % (Auto) 49.3 (35-85) % Lymph % (Auto) 37.1 (10-55) % [place] % (Auto) 9.2 (0-16) % Eos % (Auto) 4.1 (0-5) % Baso % (Auto) 0.3 (0-3) % Neut # (Auto) 4.31 (1.80-7.00) 10^3/uL Lymph # (Auto) 3.25 (1.00-4.80) 10^3/uL [place] # (Auto) 0.81 H (0.00-0.80) 10^3/uL Eos # (Auto) 0.36 (0.00-0.45) 10^3/uL Baso # (Auto) 0.03 10^3/uL D-Dimer, Quantitative 0.46 (0.00-0.50) Sodium 138 (136-145) mEq/L Potassium 4.0 (3.5-5.0) mEq/L Chloride 100 (98-106) mEq/L Carbon Dioxide 25 (21-32) mmol/L BUN 23 H (7-18) mg/dL Creatinine 1.5 H (0.7-1.3) mg/dL Est Cr Clr Drug Dosing 33.44 mL/min Estimated GFR (MDRD) 45 L (>=60) mL/min Glucose 105 H D (75-99) mg/dL Calcium 9.2 (8.4-10.1) mg/dL Total Bilirubin 0.6 (0.0-1.0) mg/dL AST 39 H (15-37) U/L ALT 43 (12-78) U/L Alkaline Phosphatase 77 (46-116) U/L Lactate Dehydrogenase 180 (100-190) U/L Creatine Kinase 165 (35-232) U/L Troponin I < 0.017 (0.00-0.06) ng/mL C-Reactive Protein < 0.2 L (0.2-0.8) mg/dL NT-Pro-B Natriuret Pep 147 (0-1000) pg/mL Total Protein 6.9 (6.4-8.2) g/dL Albumin 3.7 (3.4-5.0) g/dL 07/31/18 07/31/18 Range/Units 06:41 06:41 WBC 6.4 (5.0-10.0) 10^3/uL RBC 3.86 L (4.50-6.00) 10^6/uL Hgb 11.4 L (14.0-18.0) g/dL Hct 32.7 L (40.0-54.0) % MCV 84.7 (82.0-94.0) fL MCH 29.5 (27.0-32.0) pg MCHC 34.9 (33.0-38.0) g/dL RDW Coeff of Gabriel 13.3 (11.0-15.0) % Plt Count 181 (150-400) 10^3/uL Neut % (Auto) 89.1 H (35-85) % Lymph % (Auto) 9.9 L (10-55) % [place] % (Auto) 0.6 (0-16) % Eos % (Auto) 0.2 (0-5) % Baso % (Auto) 0.2 (0-3) % Neut # (Auto) 5.70 (1.80-7.00) 10^3/uL Lymph # (Auto) 0.63 L (1.00-4.80) 10^3/uL [place] # (Auto) 0.04 (0.00-0.80) 10^3/uL Eos # (Auto) 0.01 (0.00-0.45) 10^3/uL Baso # (Auto) 0.01 10^3/uL D-Dimer, Quantitative (0.00-0.50) Sodium 138 (136-145) mEq/L Potassium 4.6 (3.5-5.0) mEq/L Chloride 103 (98-106) mEq/L Carbon Dioxide 24 (21-32) mmol/L BUN 28 H (7-18) mg/dL Creatinine 1.6 H (0.7-1.3) mg/dL Est Cr Clr Drug Dosing 30.13 mL/min Estimated GFR (MDRD) 42 L (>=60) mL/min Glucose 182 H D (75-99) mg/dL Calcium 9.0 (8.4-10.1) mg/dL Total Bilirubin (0.0-1.0) mg/dL AST (15-37) U/L ALT (12-78) U/L Alkaline Phosphatase (46-116) U/L Lactate Dehydrogenase (100-190) U/L Creatine Kinase (35-232) U/L Troponin I (0.00-0.06) ng/mL C-Reactive Protein < 0.2 L (0.2-0.8) mg/dL NT-Pro-B Natriuret Pep (0-1000) pg/mL Total Protein (6.4-8.2) g/dL Albumin (3.4-5.0) g/dL Med Orders - Current: Current Medications Acetaminophen (Tylenol) 650 mg PO Q4H PRN PRN Reason: Pain (Mild 1-3)/fever Albuterol/Ipratropium (Duoneb 3.0-0.5 Mg/3 Ml) 3 ml NEB QIDRT [facility] Last Admin: 07/31/18 08:25 Dose: 3 ml Albuterol/Ipratropium (Duoneb 3.0-0.5 Mg/3 Ml) 3 ml NEB Q4H PRN PRN Reason: Dyspnea Aspirin (Halfprin) 81 mg PO DAILY [facility] Last Admin: 07/31/18 08:26 Dose: 81 mg Ceftriaxone Sodium (Rocephin) 1 gm IVPUSH Q24H [facility] Last Admin: 07/30/18 21:41 Dose: 1 gm Cholecalciferol (Vitamin D3) 5,000 units PO DAILY [facility] Last Admin: 07/31/18 08:26 Dose: 5,000 units Enalapril Maleate (Vasotec) 20 mg PO DAILY [facility] Last Admin: 07/31/18 08:27 Dose: 20 mg Enoxaparin Sodium (Lovenox) 40 mg SUBCUT Q24H [facility] Last Admin: 07/30/18 21:46 Dose: 40 mg Hydrochlorothiazide (Hydrochlorothiazide) 12.5 mg PO DAILY [facility] Last Admin: 07/31/18 08:26 Dose: 12.5 mg Azithromycin 500 mg/ Sodium (Chloride) 250 mls @ 250 mls/hr IV Q24H [facility] Last Admin: 07/30/18 21:47 Dose: 250 mls/hr Methylprednisolone Sodium Succinate (Solu-Medrol) 62.5 mg IVPUSH Q12H [facility] Last Admin: 07/31/18 08:27 Dose: 62.5 mg Mometasone Furoate/Formoterol Fumar (Dulera 200-5 Mcg) 2 puff IH BID [facility] Last Admin: 07/31/18 08:25 Dose: 2 puff Ptom Verapamil Hcl [Calan Sr] 120 Mg Tab 60 mg PO DAILY [facility] Ondansetron HCl (Zofran Odt) 4 mg PO Q4H PRN PRN Reason: nausea, able to take PO Sodium Chloride (Saline Flush) 10 ml FLUSH ASDIRECTED PRN PRN Reason: Keep Vein Open Temazepam (Restoril) 15 mg PO BEDTIME PRN PRN Reason: Sleep Discontinued Medications Albuterol/Ipratropium (Duoneb 3.0-0.5 Mg/3 Ml) 9 ml NEB ONETIME ONE Stop: 07/30/18 18:33 Last Admin: 07/30/18 19:31 Dose: 9 ml Albuterol/Ipratropium (Duoneb 3.0-0.5 Mg/3 Ml) 3 ml NEB ONETIME ONE Stop: 07/30/18 21:24 Last Admin: 07/30/18 21:49 Dose: 3 ml Methylprednisolone Sodium Succinate (Solu-Medrol) 125 mg IVPUSH NOW ONE Stop: 07/30/18 18:37 Last Admin: 07/30/18 18:36 Dose: 125 mg Methylprednisolone Sodium Succinate (Solu-Medrol) Confirm Administered Dose 125 mg .ROUTE .STK-MED ONE Stop: 07/30/18 18:26 Last Admin: 07/30/18 19:26 Dose: Not Given Methylprednisolone Sodium Succinate (Solu-Medrol) 62.5 mg IVPUSH Q12H [facility] Last Admin: 07/30/18 22:09 Dose: Not Given - Exam Quality Assessment: Supplemental Oxygen General: Alert, Oriented HEENT: Mucous Membr. Moist/[place] Neck: Supple Lungs: Clear to Auscultation, Normal Respiratory Effort Cardiovascular: Regular Rate, Regular Rhythm GI/Abdominal Exam: Normal Bowel Sounds, Soft, Non-Tender Extremities: Normal Inspection, No Pedal Edema Skin: Warm, Dry Neurological: No New Focal Deficit - Problem List & Annotations (1) COPD exacerbation SNOMED Code(s): 681327169 Code(s): J44.1 - CHRONIC OBSTRUCTIVE PULMONARY DISEASE W (ACUTE) EXACERBATION Status: Acute Priority: High Current Visit: Yes - Problem List Review Problem List Initiated/Reviewed/Updated: Yes - My Orders Last 24 Hours: My Active Orders 07/30/18 18:37 Chest 1V Frontal [CR] Stat EKG 12 Lead [EK] Stat 07/30/18 19:30 RT Aerosol Therapy [RC] 0800,1200,1600,2000 07/30/18 20:43 Resuscitation Status Routine 07/30/18 20:58 Patient Status [ADT] Routine Oxygen Therapy [RC] 2355 Up With Assistance [RC] .PRN Vital Signs [RC] 0000,0400,0800,1200,1600,2000 CULTURE SPUTUM + SMEAR [RM] Stat Acetaminophen [Tylenol] 650 mg PO Q4H PRN Ondansetron [Zofran ODT] 4 mg PO Q4H PRN Sodium Chloride 0.9% [Saline Flush] 10 ml FLUSH ASDIRECTED PRN Temazepam [Restoril] 15 mg PO BEDTIME PRN Saline Lock Insert [OM.PC] Routine 07/30/18 21:00 Azithromycin [Zithromax] 500 mg Sodium Chloride 0.9% [Normal Saline] 250 ml IV Q24H Enoxaparin [Lovenox] 40 mg SUBCUT Q24H cefTRIAXone [Rocephin] 1 gm IVPUSH Q24H 07/30/18 21:23 RT Aerosol Therapy [RC] .PRN 07/30/18 21:50 Albuterol/Ipratropium [DuoNeb 3.0-0.5 MG/3 ML] 3 ml NEB Q4H PRN 07/30/18 Breakfast Regular Diet [DIET] 07/31/18 08:00 Albuterol/Ipratropium [DuoNeb 3.0-0.5 MG/3 ML] 3 ml NEB QIDRT Aspirin [Halfprin] 81 mg PO DAILY Cholecalciferol (Vitamin D3) [Vitamin D3] 5,000 units PO DAILY Enalapril [Vasotec] 20 mg PO DAILY Mometasone/Formoterol [Dulera 200-5 MCG] 2 puff IH BID Verapamil HCl [Calan SR] 60 mg PO DAILY hydroCHLOROthiazide 12.5 mg PO DAILY methylPREDNISolone Sod Succ [Solu-MEDROL] 62.5 mg IVPUSH Q12H 07/31/18 10:00 FARSHAD Hose [Antiembolic Hose] [OM.PC] Routine - Assessment Assessment:: COPD Exacerbation - Plan Plan:: Patient much improved this am. Oxygen at 1 liter and sats 97%. Mild cough, nonproductive this am. Lung sounds clear this am. Good air exchange. WBC remains normal at 6.4. Creatinine 1.6. Electrolytes normal. CRP negative. Will wean off oxygen today. Ambulate in halls, monitor sats. Continue IV antibiotics empirically and steroids. Continue nebs. If tolerates activity, possible discharge home tomorrow.
[2018-07-31] MEDS ORDERED: Calcium Carbonate 500 MG Tab.Chew ONE (20:49)
[2018-07-31] MEDS ORDERED: Calcium Carbonate 500 MG Tab.Chew PO ONE (20:50)
[2018-07-31] MEDS: Enoxaparin 40 MG/0.4 ML Syringe SUBCUT SCH (21:02)
[2018-07-31] MEDS: cefTRIAXone 1 GM Vial IVPUSH SCH (21:02)
[2018-07-31] MEDS: Azithromycin 500 MG in Sodium Chloride 0.9% 250 ML IV SCH (21:02)
[2018-08-01] MEDS: Enalapril 5 MG Tab PO SCH (07:37)
[2018-08-01] MEDS: Hydrochlorothiazide 25 MG Tab PO SCH (07:38)
[2018-08-01] MEDS: methylPREDNISolone Sodium Succinate 125 MG/2 ML SDV IVPUSH SCH (07:38)
[2018-08-01] MEDS: Cholecalciferol (Vitamin D3) 1,000 Unit Tab PO SCH (07:38)
[2018-08-01] MEDS: Aspirin 81 MG Tab.EC PO SCH (07:39)
[2018-08-01] MEDS: VERAPAMIL HCL 120 MG PO SCH (07:39)
[2018-08-01 07:40] VITALS: BP 140/67
[2018-08-01] MEDS: Formoterol/Mometasone 200-5 MCG 8.8 GM Inhaler IH SCH (08:39)
[2018-08-01] MEDS: Albuterol/Ipratropium 3.0-0.5 MG/3 ML Neb Soln NEB SCH (08:39)
--- NOTE | 2018-08-01 09:10 | PCM.DCSUM1 ---
Discharge Summary - Hospital Course HPI Initial Comments: Jeovanny is a pleasant 77 year old male who was admitted to the hospital from the ED on 07/30/2018 for COPD exacerbation. He presented to ED via [facility] with difficulty breathing. Initially on admission, was requiring 2L O2. Throughout hospitalization patient's breathing did improve greatly. He was gradually able to be weaned off oxygen. He was treated with IV Solu Medrol, rocephin, azithromycin, and DuoNebs. He responded nicely. Lab work remained normal throughout stay. On day of discharge, patient felt breathing was at baseline. He was ambulating in halls without difficulty. O2 sats remained stable on RA. He will finish dose of azithromycin as well as prednisone. Patient has home nebulizers. He is advised to follow up with PCP in 5-10 days, sooner if symptoms worsen or do not improve. He wishes to discuss possibility of getting a CPAP at follow up appointment. Patient voiced understanding and is discharged from facility in satisfactory condition. Diagnosis: Stroke: No Modified Ashley Scale: No Symptoms at All Modified Morehouse Scale Score: 0 - Discharge Data Discharge Date: 08/01/18 Discharge Disposition: Home, Self-Care 01 Condition: Good - Discharge Diagnosis/Problem(s) (1) COPD exacerbation SNOMED Code(s): 259436531 ICD Code: J44.1 - CHRONIC OBSTRUCTIVE PULMONARY DISEASE W (ACUTE) EXACERBATION Status: Acute Priority: High - Patient Instructions Diet: Usual Diet as Tolerated Activity: As Tolerated Notify Provider of: Fever - Discharge Plan *PRESCRIPTION DRUG MONITORING PROGRAM REVIEWED*: No *COPY OF PRESCRIPTION DRUG MONITORING REPORT IN PATIENT ARLIN: No Prescriptions/Med Rec: Azithromycin [Zithromax] 250 mg PO DAILY 5 Days #5 tab predniSONE [Prednisone] 20 mg PO DAILY 5 Days #7 tablet Home Medications: Home Meds Albuterol [Proventil HFA] 2 puff INH Q4H PRN 05/19/17 [History] Albuterol/Ipratropium [DuoNeb 3.0-0.5 MG/3 ML] 3 ml NEB QIDRT neb 05/19/17 [Rx] Aspirin [Adult Low Dose Aspirin EC] 81 mg PO DAILY 05/19/17 [History] Budesonide/Formoterol Fumarate [Symbicort 160-4.5 Mcg Inhaler] 2 puff INH BID [History] Cholecalciferol (Vitamin D3) [Vitamin D3] 5,000 unit PO DAILY 05/19/17 [History] Hydrochlorothiazide 12.5 mg PO DAILY 05/19/17 [History] Enalapril [Vasotec] 20 mg PO DAILY 05/20/17 [History] Verapamil HCl [Calan SR] 60 mg PO DAILY 05/20/17 [History] Azithromycin [Zithromax] 250 mg PO DAILY 5 Days #5 tab 08/01/18 [Rx] predniSONE [Prednisone] 20 mg PO DAILY 5 Days #7 tablet 08/01/18 [Rx] Patient Handouts: Chronic Obstructive Pulmonary Disease Exacerbation Forms: ED Department Discharge Referrals: Linnea Nava PA-C [Primary Care Provider] - - Discharge Summary/Plan Comment DC Time >30 min.: No - General Info Date of Service: 08/01/18 Admission Dx/Problem (Free Text: COPD Exacerbation Subjective Update: Patient reports he is feeling much better than admit. Denies any SOB at rest or cough. He wishes to discharge home. Nursing reports he has been doing well. Ambulating in halls without difficulty. Functional Status: Reports: Pain Controlled, Tolerating Diet, Ambulating, Urinating. Denies: New Symptoms - Review of Systems General: Reports: No Symptoms HEENT: Reports: No Symptoms Pulmonary: Reports: Shortness of Breath (with exertion). Denies: Pleuritic Chest Pain, Cough, Sputum, Wheezing Cardiovascular: Reports: Dyspnea on Exertion. Denies: Chest Pain, Edema, Lightheadedness Gastrointestinal: Reports: No Symptoms Genitourinary: Reports: No Symptoms Musculoskeletal: Reports: No Symptoms Skin: Reports: No Symptoms Neurological: Reports: No Symptoms Psychiatric: Reports: No Symptoms - Patient Data Vitals - Most Recent: Last Vital Signs Temp 97.3 F 08/01/18 07:43 Pulse 85 08/01/18 07:43 Resp 20 08/01/18 07:43 BP 140/67 08/01/18 07:43 Pulse Ox 97 08/01/18 07:43 Weight - Most Recent: 144 lb 4.8 oz Med Orders - Current: Current Medications Acetaminophen (Tylenol) 650 mg PO Q4H PRN PRN Reason: Pain (Mild 1-3)/fever Albuterol/Ipratropium (Duoneb 3.0-0.5 Mg/3 Ml) 3 ml NEB QIDRT [facility] Last Admin: 08/01/18 08:39 Dose: 3 ml Albuterol/Ipratropium (Duoneb 3.0-0.5 Mg/3 Ml) 3 ml NEB Q4H PRN PRN Reason: Dyspnea Aspirin (Halfprin) 81 mg PO DAILY [facility] Last Admin: 08/01/18 07:39 Dose: 81 mg Ceftriaxone Sodium (Rocephin) 1 gm IVPUSH Q24H [facility] Last Admin: 07/31/18 21:02 Dose: 1 gm Cholecalciferol (Vitamin D3) 5,000 units PO DAILY [facility] Last Admin: 08/01/18 07:38 Dose: 5,000 units Enalapril Maleate (Vasotec) 20 mg PO DAILY [facility] Last Admin: 08/01/18 07:37 Dose: 20 mg Enoxaparin Sodium (Lovenox) 40 mg SUBCUT Q24H [facility] Last Admin: 07/31/18 21:02 Dose: 40 mg Hydrochlorothiazide (Hydrochlorothiazide) 12.5 mg PO DAILY [facility] Last Admin: 08/01/18 07:38 Dose: 12.5 mg Azithromycin 500 mg/ Sodium (Chloride) 250 mls @ 250 mls/hr IV Q24H [facility] Last Admin: 07/31/18 21:02 Dose: 250 mls/hr Methylprednisolone Sodium Succinate (Solu-Medrol) 62.5 mg IVPUSH Q12H [facility] Last Admin: 08/01/18 07:38 Dose: 62.5 mg Mometasone Furoate/Formoterol Fumar (Dulera 200-5 Mcg) 2 puff IH BID [facility] Last Admin: 08/01/18 08:39 Dose: 2 puff Ptom Verapamil Hcl [Calan Sr] 120 Mg Tab 60 mg PO DAILY [facility] Last Admin: 08/01/18 07:39 Dose: 60 mg Ondansetron HCl (Zofran Odt) 4 mg PO Q4H PRN PRN Reason: nausea, able to take PO Sodium Chloride (Saline Flush) 10 ml FLUSH ASDIRECTED PRN PRN Reason: Keep Vein Open Temazepam (Restoril) 15 mg PO BEDTIME PRN PRN Reason: Sleep Discontinued Medications Albuterol/Ipratropium (Duoneb 3.0-0.5 Mg/3 Ml) 9 ml NEB ONETIME ONE Stop: 07/30/18 18:33 Last Admin: 07/30/18 19:31 Dose: 9 ml Albuterol/Ipratropium (Duoneb 3.0-0.5 Mg/3 Ml) 3 ml NEB ONETIME ONE Stop: 07/30/18 21:24 Last Admin: 07/30/18 21:49 Dose: 3 ml Calcium Carbonate/Glycine (Tums) Confirm Administered Dose 2,000 mg .ROUTE .STK- MED ONE Stop: 07/31/18 20:50 Last Admin: 07/31/18 21:05 Dose: Not Given Calcium Carbonate/Glycine (Tums) 2,000 mg PO ONETIME ONE Stop: 07/31/18 20:51 Last Admin: 07/31/18 21:05 Dose: 2,000 mg Methylprednisolone Sodium Succinate (Solu-Medrol) 125 mg IVPUSH NOW ONE Stop: 07/30/18 18:37 Last Admin: 07/30/18 18:36 Dose: 125 mg Methylprednisolone Sodium Succinate (Solu-Medrol) Confirm Administered Dose 125 mg .ROUTE .STK-MED ONE Stop: 07/30/18 18:26 Last Admin: 07/30/18 19:26 Dose: Not Given Methylprednisolone Sodium Succinate (Solu-Medrol) 62.5 mg IVPUSH Q12H [facility] Last Admin: 07/30/18 22:09 Dose: Not Given - Exam Quality Assessment: Denies: Supplemental Oxygen General: Reports: Alert, Oriented, No Acute Distress Neck: Reports: Supple Lungs: Reports: Normal Respiratory Effort, Decreased Breath Sounds. Denies: Wheezing Cardiovascular: Reports: Regular Rate, Regular Rhythm GI/Abdominal Exam: Normal Bowel Sounds, Soft, Non-Tender, No Organomegaly, No Distention, No Abnormal Bruit, No Mass, Pelvis Stable Extremities: Normal Inspection, Normal Range of Motion, Non-Tender, No Pedal Edema, Normal Capillary Refill Skin: Reports: Warm, Dry, Intact Neurological: Reports: No New Focal Deficit Psy/Mental Status: Reports: Alert, Normal Affect, Normal Mood
== END 2018-08-01 11:05 | disposition home or self-care (01) | DRG 192 ==
LOC: CC.ED 18:32 → UNDOADMIN 20:00 → CC.MS 20:00 → UNDODISIN 08-01 11:05
PROVIDERS: ADMIT Physician Assistant Medical; ATTEND Family Medicine
DX: J44.1 Chronic obstructive pulmonary disease with (acute) exacerbation (principal); I10 Essential (primary) hypertension; K21.9 Gastro-esophageal reflux disease without esophagitis; F41.9 Anxiety disorder, unspecified; H54.7 Unspecified visual loss; M19.90 Unspecified osteoarthritis, unspecified site; M54.9 Dorsalgia, unspecified; G89.29 Other chronic pain; Z87.891 Personal history of nicotine dependence; Z79.899 Other long term (current) drug therapy; Z85.46 Personal history of malignant neoplasm of prostate; Z79.82 Long term (current) use of aspirin
CPT/HCPCS: 36415; 71045; 80053; 82550; 83615; 83880; 84484; 85025; 85379; 86140; 94640; 96374; 99285; J2930; 80048; 93010; A9270-GY; J0456; J0696; J1650; J7050; J7620-GY

== ENCOUNTER 2019-02-07 11:15 | Emergency (ER) | payer MEDICARE, OTHER ==
[2019-02-07] MEDS ORDERED: Sodium Chloride 0.9% 1,000 ML IV SCH (11:45)
--- NOTE | 2019-02-07 12:00 | EDM.PDOC ---
ED HPI GENERAL MEDICAL PROBLEM - General Chief Complaint: General Stated Complaint: WEAKNESS Time Seen by Provider: 02/07/19 11:30 Source of Information: Reports: Patient History Limitations: Reports: No Limitations - History of Present Illness INITIAL COMMENTS - FREE TEXT/NARRATIVE: States that he has had diarrhea since and he has not had much to eat or drink since then. He has not vomited but is nauseated and feels weak. Was at [facility] in [place] on Friday and they did add an inhaler but he hasn't received it in the mail yet. No other med changes were made. Has not had a fever. Onset: Gradual Onset Date: 02/04/19 Location: Reports: Abdomen - Related Data Allergies Allergy/AdvReac Type Severity Reaction Status Date / Time No Known Allergies Allergy Verified 02/07/19 11:35 Home Meds: Home Meds Albuterol [Proventil HFA] 2 puff INH Q4H PRN 05/19/17 [History] Albuterol/Ipratropium [DuoNeb 3.0-0.5 MG/3 ML] 3 ml NEB QIDRT neb 05/19/17 [Rx] Aspirin [Adult Low Dose Aspirin EC] 81 mg PO DAILY 05/19/17 [History] Budesonide/Formoterol Fumarate [Symbicort 160-4.5 Mcg Inhaler] 2 puff INH BID [History] Cholecalciferol (Vitamin D3) [Vitamin D3] 5,000 unit PO DAILY 05/19/17 [History] Hydrochlorothiazide 12.5 mg PO DAILY 05/19/17 [History] Enalapril [Vasotec] 20 mg PO DAILY 05/20/17 [History] Verapamil HCl [Calan SR] 60 mg PO DAILY 05/20/17 [History] Past Medical History HEENT History: Reports: Impaired Vision Cardiovascular History: Reports: Hypertension, SOB on Exertion Respiratory History: Reports: Asthma, COPD, SOB Gastrointestinal History: Reports: GERD, PUD Genitourinary History: Reports: Prostate Disorder, Urinary Incontinence Musculoskeletal History: Reports: Arthritis, Back Pain, Chronic, Fracture Neurological History: Reports: Concussion Psychiatric History: Reports: Anxiety, Other (See Below) Other Psychiatric History: perpetual stress Oncologic (Cancer) History: Reports: Prostate Dermatologic History: Reports: None - Past Surgical History Cardiovascular Surgical History: Reports: None Respiratory Surgical History: Reports: None GI Surgical History: Reports: Appendectomy, Colonoscopy, Polypectomy, Other ( See Below) Other GI Surgeries/Procedures: "removed part of stomach with ulcers" Male Surgical History: Reports: Prostatectomy Neurological Surgical History: Reports: None Musculoskeletal Surgical History: Reports: None Social & Family History - Family History Family Medical History: Noncontributory - Caffeine Use Caffeine Use: Reports: Coffee - Living Situation & Occupation Living situation: Reports: Occupation: Retired ([employer]) ED ROS GENERAL - Review of Systems Review Of Systems: See Below Constitutional: Reports: Weakness. Denies: Fever, Chills HEENT: Reports: No Symptoms Respiratory: Reports: No Symptoms Cardiovascular: Reports: No Symptoms GI/Abdominal: Reports: Diarrhea. Denies: Vomiting : Reports: No Symptoms Musculoskeletal: Reports: No Symptoms Skin: Reports: No Symptoms Neurological: Reports: No Symptoms ED EXAM, GENERAL - Physical Exam Exam: See Below Exam Limited By: No Limitations General Appearance: Alert, WD/WN, No Apparent Distress Ears: Normal External Exam, Normal Canal, Normal TMs Nose: Normal Inspection Throat/Mouth: Normal Inspection, Normal Oropharynx Head: Atraumatic, Normocephalic Neck: Normal Inspection, Supple, Non-Tender Respiratory/Chest: No Respiratory Distress, Lungs Clear, Normal Breath Sounds Cardiovascular: Regular Rate, Rhythm, No Edema GI/Abdominal: Soft, Non-Tender, No Organomegaly Back Exam: Normal Inspection Extremities: Normal Inspection, Normal Range of Motion, Normal Capillary Refill Neurological: Alert, Oriented Psychiatric: Normal Affect Skin Exam: Warm, Dry, Intact Course - Vital Signs Last Recorded V/S: Last Vital Signs Temp 99.0 F 02/07/19 18:07 Pulse 75 02/07/19 18:07 Resp 16 02/07/19 18:07 BP 102/52 L 02/07/19 18:07 Pulse Ox 97 02/07/19 18:07 - Orders/Labs/Meds Orders: Active Orders 24 hr Category Date Time Status Sodium Chloride 0.9% [Normal Saline] 1,000 ml Med 02/07/19 11:45 Active IV ASDIRECTED Medication Orders Sodium Chloride (Normal Saline) 1,000 mls @ 100 mls/hr IV ASDIRECTED [facility] Last Admin: 02/07/19 11:56 Dose: 100 mls/hr Labs: Laboratory Tests 02/07/19 02/07/19 02/07/19 Range/Units 11:39 11:39 11:40 WBC 5.2 (5.0-10.0) 10^3/uL RBC 3.99 L (4.50-6.00) 10^6/uL Hgb 11.7 L (14.0-18.0) g/dL Hct 33.7 L (40.0-54.0) % MCV 84.5 (82.0-94.0) fL MCH 29.3 (27.0-32.0) pg MCHC 34.7 (33.0-38.0) g/dL RDW Coeff of Gabriel 13.2 (11.0-15.0) % Plt Count 205 (150-400) 10^3/uL Neut % (Auto) 63.4 (35-85) % Lymph % (Auto) 19.9 (10-55) % Blanco % (Auto) 12.6 (0-16) % Eos % (Auto) 3.7 (0-5) % Baso % (Auto) 0.4 (0-3) % Neut # (Auto) 3.28 (1.80-7.00) 10^3/uL Lymph # (Auto) 1.03 (1.00-4.80) 10^3/uL Blanco # (Auto) 0.65 (0.00-0.80) 10^3/uL Eos # (Auto) 0.19 (0.00-0.45) 10^3/uL Baso # (Auto) 0.02 10^3/uL Sodium 139 (136-145) mEq/L Potassium 3.6 D (3.5-5.0) mEq/L Chloride 103 (98-106) mEq/L Carbon Dioxide 23 (21-32) mmol/L BUN 51 H D (7-18) mg/dL Creatinine 1.7 H (0.7-1.3) mg/dL Est Cr Clr Drug Dosing 27.89 mL/min Estimated GFR (MDRD) 39 L (>=60) mL/min Glucose 106 H D (75-99) mg/dL Calcium 8.7 (8.4-10.1) mg/dL Total Bilirubin 0.5 (0.0-1.0) mg/dL AST 27 (15-37) U/L ALT 26 (12-78) U/L Alkaline Phosphatase 69 (46-116) U/L C-Reactive Protein 1.9 H (0.2-0.8) mg/dL Total Protein 6.1 L (6.4-8.2) g/dL Albumin 2.9 L (3.4-5.0) g/dL Urine Color Yellow (YELLOW) Urine Appearance Clear (CLEAR) Urine pH 5.0 (4.5-8.0) Ur Specific [place] 1.025 H (1.003-1.020) Urine Protein Trace H (NEGATIVE) mg/dL Urine Glucose (UA) Negative (NEGATIVE) mg/dL Urine Ketones Negative (NEGATIVE) mg/dL Urine Occult Blood Negative (NEGATIVE) Urine Nitrite Negative (NEGATIVE) Urine Bilirubin Negative (NEGATIVE) Urine Urobilinogen 0.2 (0.2-1.0) EU/dL Ur Leukocyte Esterase Negative (NEGATIVE) Urine RBC Not seen (0-5) /HPF Urine WBC Not seen (0-5) /HPF Ur Squamous Epith Cells Few H (NOT SEEN) /HPF Urine Mucus Moderate H (NOT SEEN) /HPF Meds: Medications Generic Name Dose Route Start Last Admin Trade Name Freq PRN Reason Stop Dose Admin Sodium Chloride 1,000 mls @ 100 mls/hr 02/07/19 11:45 02/07/19 11:56 Normal Saline IV 100 mls/hr ASDIRECTED [facility] Administration - Re-Assessments/Exams Free Text/Narrative Re-Assessment/Exam: 02/07/19 12:28 Discussed lab results with the pt. Will give fluids for the next several hours and reevaluate. 02/07/19 18:40 Liter of fluids infused and he has been up walking and feels well. DId eat supper without any difficulty. No further diarrhea. Will discharge at this time. Departure - Departure Time of Disposition: 18:40 Disposition: Home, Self-Care 01 Condition: Good Clinical Impression: Dehydration, mild Diarrhea Qualifiers: Diarrhea type: presumed infectious Qualified Code(s): R19.7 - Diarrhea, unspecified - Discharge Information *PRESCRIPTION DRUG MONITORING PROGRAM REVIEWED*: Not Applicable *COPY OF PRESCRIPTION DRUG MONITORING REPORT IN PATIENT ARLIN: Not Applicable Instructions: Diarrhea, Adult, Rehydration, Adult Referrals: Linnea Nava PA-C [Primary Care Provider] - Forms: ED Department Discharge Additional Instructions: push fluids the next 1-2 days Check in clinic on Friday in [place]. Recheck sooner if not feeling well. - Problem List & Annotations (1) Dehydration, mild SNOMED Code(s): 2985118584131 Code(s): E86.0 - DEHYDRATION Status: Acute Priority: High Current Visit : Yes (2) Diarrhea SNOMED Code(s): 77572680 Code(s): R19.7 - DIARRHEA, UNSPECIFIED Status: Acute Priority: High Current Visit: Yes Qualifiers: Diarrhea type: presumed infectious Qualified Code(s): R19.7 - Diarrhea, unspecified - Problem List Review Problem List Initiated/Reviewed/Updated: Yes - My Orders Last 24 Hours: My Active Orders 02/07/19 11:45 Sodium Chloride 0.9% [Normal Saline] 1,000 ml IV ASDIRECTED - Assessment/Plan Last 24 Hours: My Active Orders 02/07/19 11:45 Sodium Chloride 0.9% [Normal Saline] 1,000 ml IV ASDIRECTED
[2019-02-07 18:43] VITALS: BP 119/56
== END 2019-02-07 18:50 | disposition home or self-care (01) ==
LOC: CC.ED 11:15
DX: E86.0 Dehydration (principal); R19.7 Diarrhea, unspecified; J44.9 Chronic obstructive pulmonary disease, unspecified; I10 Essential (primary) hypertension; K21.9 Gastro-esophageal reflux disease without esophagitis; F41.9 Anxiety disorder, unspecified; Z79.899 Other long term (current) drug therapy; Z79.82 Long term (current) use of aspirin
CPT/HCPCS: 36415; 80053; 81001; 85025; 86140; 96360; 96361; 99283; 99285-25; J7030

== ENCOUNTER 2023-12-04 15:24 | Inpatient (IN) | payer MEDICARE ==
[2023-12-04 15:35] LABS: BASOPHILS ABSOLUTE AUTO 0.02 10^3/uL (0.00-0.50); BASOPHILS PERCENT AUTO 0.2 % (0-1); EOSINOPHILS PERCENT AUTO 1.9 % (0-6); HEMATOCRIT 31.8 % (42.0-52.0); HEMOGLOBIN 10.7 g/dL (14.0-18.0); IMMATURE GRAN ABSOLUTE AUTO 0.07 10^3/uL (0.00-0.49); IMMATURE GRAN PERCENT AUTO 0.7 % (0.0-4.9); LYMPHOCYTES ABSOLUTE AUTO 1.68 10^3/uL (0.60-5.00); LYMPHOCYTES PERCENT AUTO 16.2 % (24-44); MEAN CORPUSCULAR HEMOGLOBIN 27.9 pg (27.0-32.0); MEAN CORPUSCULAR HGB CONC 33.6 g/dL (32.0-36.0); MONOCYTES ABSOLUTE AUTO 1.13 10^3/uL (0.00-1.50); MONOCYTES PERCENT AUTO 10.9 % (0-10); NEUTROPHILS ABSOLUTE AUTO 7.29 x10^3/uL (1.80-8.00); NEUTROPHILS PERCENT AUTO 70.1 % (41-71); PLATELET COUNT,PLT 261 10^3/uL (150-400); RED BLOOD CELL COUNT 3.83 x10^6/uL (4.50-6.00); WHITE BLOOD CELL COUNT,WBC 10.4 10^3/uL (4.0-11.0)
[2023-12-04 16:37] LABS: CALCIUM IONIZED,POC 4.6 mmol/L (4.6-5.3); CREATININE,POC 1.36 mg/dL (0.51-1.19)
[2023-12-04] MEDS ORDERED: Albuterol 0.083% 2.5 MG/3 ML Neb Soln NEB PRN (16:40)
[2023-12-04] MEDS ORDERED: Docusate Sodium 100 MG Cap PO PRN (16:42)
[2023-12-04] MEDS ORDERED: Ondansetron 4 MG/2 ML SDV IV PRN (16:42)
[2023-12-04] MEDS ORDERED: Ondansetron 4 MG Tab.DIS PO PRN (16:42)
[2023-12-04] MEDS ORDERED: Polyethylene Glycol 3350 Powder 17 GM Packet PO PRN (16:42)
[2023-12-04] MEDS: Iopamidol 755 Mg/ML 100 ML Bottle IVPUSH ONE (16:57)
[2023-12-04] MEDS: Piperacillin/Tazobactam 4.5 GM in Sodium Chloride 0.9% 100 ML IV ONE (17:40)
[2023-12-04] MEDS: Sodium Chloride 0.9% 1,000 ML IV STA (17:41)
[2023-12-04] MEDS ORDERED: Albuterol 6.7 GM Inhaler INH PRN (18:46)
[2023-12-04 19:06] LABS: A/G RATIO 0.7 (0.9-1.8); ALBUMIN 2.9 g/dL (3.4-5.0); BILIRUBIN DIRECT 0.2 mg/dL (0.0-0.3); BILIRUBIN INDIRECT 0.6 mg/dL; BILIRUBIN TOTAL 0.8 mg/dL (0.0-1.0); PROTEIN TOTAL,TP 7.1 g/dL (6.4-8.2)
[2023-12-04] MEDS: Albuterol/Ipratropium 3.0-0.5 MG/3 ML Neb Soln NEB SCH (19:21)
[2023-12-04] MEDS: Acetaminophen 325 MG Tab PO PRN (19:49)
[2023-12-04] MEDS: Piperacillin/Tazobactam 4.5 GM in Sodium Chloride 0.9% 100 ML IV SCH (20:42)
[2023-12-05] MEDS: Enalapril 5 MG Tab PO SCH (07:46)
[2023-12-05] MEDS: Aspirin 81 MG Tab.EC PO SCH (07:46)
[2023-12-05] MEDS: Hydrochlorothiazide 25 MG Tab PO SCH (07:48)
[2023-12-05] MEDS: Formoterol/Mometasone 100-5 MCG 8.8 GM Inhaler IH SCH (08:34)
[2023-12-05] MEDS: Enoxaparin 30 MG/0.3 ML Syringe SUBCUT SCH (11:41)
[2023-12-06] MEDS: BICALUTAMIDE 50 MG PO SCH (07:34)
[2023-12-06] MEDS: VERAPAMIL HCL 120 MG PO SCH (07:35)
[2023-12-06 07:52] LABS: BASOPHILS ABSOLUTE AUTO 0.03 10^3/uL (0.00-0.50); BASOPHILS PERCENT AUTO 0.5 % (0-1); EOSINOPHILS ABSOLUTE AUTO 0.43 10^3/uL (0.00-1.50); EOSINOPHILS PERCENT AUTO 6.5 % (0-6); HEMATOCRIT 28.8 % (42.0-52.0); HEMOGLOBIN 9.6 g/dL (14.0-18.0); IMMATURE GRAN ABSOLUTE AUTO 0.17 10^3/uL (0.00-0.49); IMMATURE GRAN PERCENT AUTO 2.6 % (0.0-4.9); LYMPHOCYTES PERCENT AUTO 21.1 % (24-44); MEAN CORPUSCULAR HEMOGLOBIN 27.7 pg (27.0-32.0); MEAN CORPUSCULAR HGB CONC 33.3 g/dL (32.0-36.0); MONOCYTES ABSOLUTE AUTO 0.88 10^3/uL (0.00-1.50); MONOCYTES PERCENT AUTO 13.3 % (0-10); NEUTROPHILS ABSOLUTE AUTO 3.73 x10^3/uL (1.80-8.00); PLATELET COUNT,PLT 303 10^3/uL (150-400); RED BLOOD CELL COUNT 3.47 x10^6/uL (4.50-6.00); WHITE BLOOD CELL COUNT,WBC 6.6 10^3/uL (4.0-11.0)
[2023-12-06 08:06] LABS: CALCIUM 8.8 mg/dL (8.4-10.1); CREATININE 1.6 mg/dL (0.7-1.3); EST CRCL DRUG DOSING (CG) 25.27 mL/min; POTASSIUM,K 4.5 mEq/L (3.5-5.0)
[2023-12-06 08:37] VITALS: PULSE 68
[2023-12-06 11:29] VITALS: BP 125/56
== END 2023-12-06 12:35 | disposition home or self-care (01) | DRG 194 ==
LOC: CC.MS 15:24 → CC.FCMC 15:24 → CC.MS 16:12 → UNDOADMIN 16:12 → CC.MS 16:42
PROVIDERS: ADMIT Physician Assistant Medical; ATTEND Nurse Practitioner
DX: J18.9 Pneumonia, unspecified organism (principal); J44.0 Chronic obstructive pulmonary disease with (acute) lower respiratory infection; I10 Essential (primary) hypertension; K21.9 Gastro-esophageal reflux disease without esophagitis; M19.90 Unspecified osteoarthritis, unspecified site; Z66 Do not resuscitate; G89.29 Other chronic pain; M54.9 Dorsalgia, unspecified; F41.9 Anxiety disorder, unspecified; Z90.49 Acquired absence of other specified parts of digestive tract; Z98.890 Other specified postprocedural states; Z79.82 Long term (current) use of aspirin; Z87.11 Personal history of peptic ulcer disease; Z79.899 Other long term (current) drug therapy; Z86.16 Personal history of COVID-19; Z87.891 Personal history of nicotine dependence
CPT/HCPCS: 36415; 71046; 71260; 80047; 80048; 80076; 83605; 83735; 85025; 87804; 87807; 94640; 97161-GP; A9270-GY; J1650; J2543; J3490; J7030; J7620-GY; Q9967; U0002

== ENCOUNTER 2024-01-24 18:51 | Inpatient (IN) | payer OTHER, MEDICARE ==
[2024-01-24] MEDS: Sodium Chloride 0.9% 500 ML IV SCH (19:39)
[2024-01-24 19:41] LABS: HEMATOCRIT 30.5 % (42.0-52.0); HEMOGLOBIN 10.3 g/dL (14.0-18.0); MEAN CORPUSCULAR HEMOGLOBIN 27.6 pg (27.0-32.0); MEAN CORPUSCULAR HGB CONC 33.8 g/dL (32.0-36.0); MEAN CORPUSCULAR VOLUME 81.8 fL (83.0-97.0); PLATELET COUNT,PLT 370 10^3/uL (150-400); RED BLOOD CELL COUNT 3.73 x10^6/uL (4.50-6.00)
[2024-01-24 19:44] LABS: WHITE BLOOD CELL COUNT,WBC 45.6 10^3/uL (4.0-11.0)
[2024-01-24 19:54] LABS: LYMPHOCYTES ABSOLUTE MAN 1.82 10^3/uL (1.00-4.80); LYMPHOCYTES PERCENT MAN 4 % (21-55); MONOCYTES ABSOLUTE MAN 1.82 10^3/uL (0.00-0.80); MONOCYTES PERCENT MAN 4 % (2-12); NEUTROPHILS ABSOLUTE MAN 41.95 10^3/uL (1.80-7.00); SEG NEUTROPHILS PERCENT MAN 92 % (35-85)
[2024-01-24 20:07] LABS: LACTIC ACID 1.8 mmol/L (0.4-2.0)
[2024-01-24 20:16] LABS: ALBUMIN 2.1 g/dL (3.4-5.0); BILIRUBIN TOTAL 0.8 mg/dL (0.0-1.0); C-REACTIVE PROTEIN 12.61 mg/dL (<=0.50); CREATININE 1.9 mg/dL (0.7-1.3); EST CRCL DRUG DOSING (CG) 18.97 mL/min; POTASSIUM,K 4.7 mEq/L (3.5-5.0); PROTEIN TOTAL,TP 5.2 g/dL (6.4-8.2)
[2024-01-24] MEDS: Piperacillin/Tazobactam 4.5 GM in Sodium Chloride 0.9% 100 ML IV ONE (20:33)
[2024-01-24] MEDS ORDERED: Albuterol 6.7 GM Inhaler INH PRN (21:20)
[2024-01-24] MEDS ORDERED: Acetaminophen 325 MG Tab PO PRN (21:28)
[2024-01-24] MEDS ORDERED: Acetaminophen 650 MG Supp RECTAL PRN (21:28)
[2024-01-24] MEDS ORDERED: Ondansetron 4 MG/2 ML SDV IV PRN (21:28)
[2024-01-24] MEDS ORDERED: Polyethylene Glycol 3350 Powder 17 GM Packet PO PRN (21:28)
[2024-01-24] MEDS ORDERED: Bisacodyl 5 MG Tab PO PRN (21:28)
[2024-01-24] MEDS: Sodium Chloride 0.9% 1,000 ML IV SCH (22:04)
[2024-01-24] MEDS: Enoxaparin 30 MG/0.3 ML Syringe SUBCUT SCH (22:04)
[2024-01-24] MEDS: VANCOmycin 1 GM/200 ML 1 GM in Premix Bag 1 BAG IV SCH (22:10)
[2024-01-24] MEDS: Ondansetron 4 MG Tab.DIS PO PRN (22:11)
[2024-01-24 22:19] LABS: APPEARANCE,URINE CLEAR (CLEAR); BILIRUBIN,URINE NEGATIVE (NEGATIVE); COLOR,URINE YELLOW (YELLOW); GLUCOSE,URINE NEGATIVE (NEGATIVE); KETONES,URINE NEGATIVE (NEGATIVE); LEUKOCYTE ESTERASE,URINE NEGATIVE (NEGATIVE); NITRITE,URINE NEGATIVE (NEGATIVE); OCCULT BLOOD,URINE NEGATIVE (NEGATIVE); PH,URINE 5.5 (4.5-8.0); PROTEIN,URINE NEGATIVE (NEGATIVE); UROBILINOGEN,URINE 0.2 EU/dL (0.2-1.0)
[2024-01-25] MEDS: Piperacillin/Tazobactam 4.5 GM in Sodium Chloride 0.9% 100 ML IV SCH (00:39)
[2024-01-25] MEDS: Nystatin Susp 100,000 Unit/ML 5 ML UD Cup PO SCH (07:46)
[2024-01-25] MEDS: methylPREDNISolone Sodium Succinate 40 MG/1 ML SDV IVPUSH SCH (07:46)
[2024-01-25] MEDS: Aspirin 81 MG Tab.EC PO SCH (07:46)
[2024-01-25] MEDS: Docusate Sodium 100 MG Cap PO SCH (07:46)
[2024-01-25] MEDS: Albuterol/Ipratropium 3.0-0.5 MG/3 ML Neb Soln NEB SCH (07:47)
[2024-01-25] MEDS: guaiFENesin 200 MG Tab PO SCH (07:47)
[2024-01-25] MEDS: Formoterol/Mometasone 100-5 MCG 8.8 GM Inhaler IH SCH (07:57)
[2024-01-25 08:06] LABS: BASOPHILS ABSOLUTE AUTO 0.01 10^3/uL (0.00-0.50); HEMATOCRIT 26.5 % (42.0-52.0); HEMOGLOBIN 8.9 g/dL (14.0-18.0); IMMATURE GRAN ABSOLUTE AUTO 0.21 10^3/uL (0.00-0.49); IMMATURE GRAN PERCENT AUTO 0.6 % (0.0-4.9); LYMPHOCYTES ABSOLUTE AUTO 0.94 10^3/uL (0.60-5.00); LYMPHOCYTES PERCENT AUTO 2.8 % (24-44); MEAN CORPUSCULAR HEMOGLOBIN 27.6 pg (27.0-32.0); MEAN CORPUSCULAR HGB CONC 33.6 g/dL (32.0-36.0); MEAN CORPUSCULAR VOLUME 82.3 fL (83.0-97.0); MONOCYTES ABSOLUTE AUTO 0.96 10^3/uL (0.00-1.50); MONOCYTES PERCENT AUTO 2.8 % (0-10); NEUTROPHILS ABSOLUTE AUTO 31.71 x10^3/uL (1.80-8.00); NEUTROPHILS PERCENT AUTO 93.8 % (41-71); PLATELET COUNT,PLT 311 10^3/uL (150-400); RED BLOOD CELL COUNT 3.22 x10^6/uL (4.50-6.00)
[2024-01-25 08:09] LABS: WHITE BLOOD CELL COUNT,WBC 33.8 10^3/uL (4.0-11.0)
[2024-01-25] MEDS: Hydrochlorothiazide 12.5 MG Cap PO SCH (08:27)
[2024-01-25] MEDS: Enalapril 5 MG Tab PO SCH (08:28)
[2024-01-25] MEDS ORDERED: Piperacillin/Tazobactam 4.5 GM in Sodium Chloride 0.9% 100 ML IV SCH (09:00)
[2024-01-25 09:13] LABS: C-REACTIVE PROTEIN 20.38 mg/dL (<=0.50); CALCIUM 7.4 mg/dL (8.4-10.1); CREATININE 1.8 mg/dL (0.7-1.3); EST CRCL DRUG DOSING (CG) 20.02 mL/min; POTASSIUM,K 4.2 mEq/L (3.5-5.0)
[2024-01-25] MEDS ORDERED: Albuterol 0.083% 2.5 MG/3 ML Neb Soln NEB PRN (11:07)
[2024-01-26 07:26] LABS: BASOPHILS ABSOLUTE AUTO 0.01 10^3/uL (0.00-0.50); BASOPHILS PERCENT AUTO 0.1 % (0-1); HEMATOCRIT 26.3 % (42.0-52.0); HEMOGLOBIN 8.8 g/dL (14.0-18.0); IMMATURE GRAN ABSOLUTE AUTO 0.05 10^3/uL (0.00-0.49); IMMATURE GRAN PERCENT AUTO 0.4 % (0.0-4.9); MEAN CORPUSCULAR HEMOGLOBIN 27.5 pg (27.0-32.0); MEAN CORPUSCULAR HGB CONC 33.5 g/dL (32.0-36.0); MEAN CORPUSCULAR VOLUME 82.2 fL (83.0-97.0); MONOCYTES ABSOLUTE AUTO 0.12 10^3/uL (0.00-1.50); NEUTROPHILS ABSOLUTE AUTO 11.89 x10^3/uL (1.80-8.00); NEUTROPHILS PERCENT AUTO 94.5 % (41-71); PLATELET COUNT,PLT 293 10^3/uL (150-400); WHITE BLOOD CELL COUNT,WBC 12.6 10^3/uL (4.0-11.0)
[2024-01-26 07:51] LABS: C-REACTIVE PROTEIN 18.4 mg/dL (<=0.50); CALCIUM 7.6 mg/dL (8.4-10.1); CREATININE 1.9 mg/dL (0.7-1.3); EST CRCL DRUG DOSING (CG) 18.97 mL/min; POTASSIUM,K 3.9 mEq/L (3.5-5.0)
[2024-01-26] MEDS: BICALUTAMIDE 50 MG PO SCH (07:53)
[2024-01-26] MEDS: VERAPAMIL HCL 120 MG PO SCH (07:54)
[2024-01-27 07:19] LABS: HEMATOCRIT 24.1 % (42.0-52.0); HEMOGLOBIN 8.2 g/dL (14.0-18.0); IMMATURE GRAN ABSOLUTE AUTO 0.03 10^3/uL (0.00-0.49); IMMATURE GRAN PERCENT AUTO 0.4 % (0.0-4.9); LYMPHOCYTES ABSOLUTE AUTO 0.57 10^3/uL (0.60-5.00); LYMPHOCYTES PERCENT AUTO 7.8 % (24-44); MEAN CORPUSCULAR HEMOGLOBIN 27.5 pg (27.0-32.0); MEAN CORPUSCULAR VOLUME 80.9 fL (83.0-97.0); MONOCYTES ABSOLUTE AUTO 0.19 10^3/uL (0.00-1.50); MONOCYTES PERCENT AUTO 2.6 % (0-10); NEUTROPHILS ABSOLUTE AUTO 6.55 x10^3/uL (1.80-8.00); NEUTROPHILS PERCENT AUTO 89.2 % (41-71); PLATELET COUNT,PLT 259 10^3/uL (150-400); RED BLOOD CELL COUNT 2.98 x10^6/uL (4.50-6.00); WHITE BLOOD CELL COUNT,WBC 7.3 10^3/uL (4.0-11.0)
[2024-01-27 07:48] VITALS: BP 167/67; PULSE 63
[2024-01-27 07:53] LABS: C-REACTIVE PROTEIN 6.5 mg/dL (<=0.50); CALCIUM 7.8 mg/dL (8.4-10.1); CREATININE 1.5 mg/dL (0.7-1.3); EST CRCL DRUG DOSING (CG) 24.02 mL/min; POTASSIUM,K 3.5 mEq/L (3.5-5.0)
== END 2024-01-27 09:13 | disposition swing bed (61) | DRG 194 ==
LOC: CC.ED 18:51 → CC.MS 20:48 → CC.ED 20:48 → UNDOADMIN 20:48 → CC.MS 21:09
PROVIDERS: ADMIT Nurse Practitioner Family; ATTEND Nurse Practitioner Family
DX: R55 Syncope and collapse (principal); J18.9 Pneumonia, unspecified organism; R06.02 Shortness of breath; R50.9 Fever, unspecified; J44.0 Chronic obstructive pulmonary disease with (acute) lower respiratory infection; J44.9 Chronic obstructive pulmonary disease, unspecified; J44.1 Chronic obstructive pulmonary disease with (acute) exacerbation; N17.9 Acute kidney failure, unspecified; E86.0 Dehydration; I10 Essential (primary) hypertension; Z66 Do not resuscitate; K21.9 Gastro-esophageal reflux disease without esophagitis; M19.90 Unspecified osteoarthritis, unspecified site; G89.29 Other chronic pain; F41.9 Anxiety disorder, unspecified; M54.9 Dorsalgia, unspecified; Z90.49 Acquired absence of other specified parts of digestive tract; Z85.46 Personal history of malignant neoplasm of prostate; Z98.890 Other specified postprocedural states; Z87.891 Personal history of nicotine dependence; Z90.79 Acquired absence of other genital organ(s); Z79.51 Long term (current) use of inhaled steroids; Z79.82 Long term (current) use of aspirin; Z79.899 Other long term (current) drug therapy; Z86.010 Personal history of colon polyps
CPT/HCPCS: 36415; 71046; 80048; 80053; 81003; 82550; 83605; 83690; 83735; 84145; 84484; 85025; 86140; 87040; 87070; 87205; 93005; 93010; 94640; 96365; 97161-GP; 99223; 99232; 99233; 99238; 99285-25; A9270-GY; J1650; J2543; J2920; J3370; J3490; J7030; J7040; J7620-GY

== ENCOUNTER 2024-01-27 09:19 | Inpatient (IN) | payer MEDICARE, OTHER ==
[2024-01-27] MEDS ORDERED: Polyethylene Glycol 3350 Powder 17 GM Packet PO PRN (09:56)
[2024-01-27] MEDS ORDERED: Acetaminophen 325 MG Tab PO PRN (09:56)
[2024-01-27] MEDS ORDERED: Ondansetron 4 MG/2 ML SDV IV PRN (09:56)
[2024-01-27] MEDS ORDERED: Ondansetron 4 MG Tab.DIS PO PRN (09:56)
[2024-01-27] MEDS ORDERED: Albuterol 0.083% 2.5 MG/3 ML Neb Soln NEB PRN (09:56)
[2024-01-27] MEDS ORDERED: Bisacodyl 5 MG Tab PO PRN (09:56)
[2024-01-27] MEDS ORDERED: Acetaminophen 650 MG Supp RECTAL PRN (09:56)
[2024-01-27] MEDS: Piperacillin/Tazobactam 4.5 GM in Sodium Chloride 0.9% 100 ML IV SCH (11:17)
[2024-01-27] MEDS: Albuterol/Ipratropium 3.0-0.5 MG/3 ML Neb Soln NEB SCH (11:17)
[2024-01-27] MEDS: Nystatin Susp 100,000 Unit/ML 5 ML UD Cup PO SCH (13:27)
[2024-01-27] MEDS: predniSONE 20 MG Tab PO ONE (16:31)
[2024-01-27] MEDS: guaiFENesin 200 MG Tab PO SCH (19:52)
[2024-01-27] MEDS: Enoxaparin 30 MG/0.3 ML Syringe SUBCUT SCH (19:52)
[2024-01-27] MEDS: Docusate Sodium 100 MG Cap PO SCH (19:53)
[2024-01-27] MEDS: Formoterol/Mometasone 100-5 MCG 8.8 GM Inhaler IH SCH (19:53)
[2024-01-27] MEDS ORDERED: methylPREDNISolone Sodium Succinate 40 MG/1 ML SDV IVPUSH SCH (20:00)
[2024-01-28] MEDS: Enalapril 5 MG Tab PO SCH (08:11)
[2024-01-28] MEDS: predniSONE 20 MG Tab PO SCH (08:12)
[2024-01-28] MEDS: Hydrochlorothiazide 12.5 MG Cap PO SCH (08:12)
[2024-01-28] MEDS: Aspirin 81 MG Tab.EC PO SCH (08:12)
[2024-01-28] MEDS: VERAPAMIL HCL PO SCH (08:15)
[2024-01-28] MEDS: BICALUTAMIDE PO SCH (08:16)
[2024-01-28] MEDS: predniSONE 20 MG Tab PO ONE (09:38)
[2024-01-29] MEDS ORDERED: predniSONE 20 MG Tab PO SCH (08:00)
[2024-01-29] MEDS: predniSONE 20 MG Tab PO SCH (08:06)
[2024-01-30] MEDS: Lactobacillus Rhamnosus GG (Probiotic) Cap PO SCH (08:53)
[2024-01-30] MEDS ORDERED: Lactobacillus Rhamnosus GG (Probiotic) Cap PO SCH (12:45)
[2024-01-30] MEDS: Loperamide 2 MG Cap PO PRN (13:13)
[2024-01-31] MEDS: predniSONE 20 MG Tab PO SCH (07:42)
[2024-02-01] MEDS: Piperacillin/Tazobactam 4.5 GM in Sodium Chloride 0.9% 100 ML IV SCH (09:00)
[2024-02-01 09:11] VITALS: BP 147/68; PULSE 55
== END 2024-02-01 13:45 | disposition home or self-care (01) | DRG 947 ==
LOC: UNDOADMIN 09:19 → CC.MS 09:19
PROVIDERS: ADMIT Physician Assistant Medical; ATTEND Physician Assistant Medical
DX: R53.1 Weakness (principal); J18.9 Pneumonia, unspecified organism; R53.81 Other malaise; J44.9 Chronic obstructive pulmonary disease, unspecified; Z79.51 Long term (current) use of inhaled steroids; Z79.82 Long term (current) use of aspirin; Z79.899 Other long term (current) drug therapy; Z79.2 Long term (current) use of antibiotics
CPT/HCPCS: 36415; 80202; 87040; 94640; 97110-GP; 99315; A9270-GY; J1650; J2543; J3370; J3490; J7050; J7512; J7620-GY

== ENCOUNTER 2024-02-23 14:20 | Emergency (ER) | payer OTHER, MEDICARE ==
[2024-02-23 14:44] LABS: BASOPHILS ABSOLUTE AUTO 0.03 10^3/uL (0.00-0.50); BASOPHILS PERCENT AUTO 0.2 % (0-1); EOSINOPHILS ABSOLUTE AUTO 0.13 10^3/uL (0.00-1.50); EOSINOPHILS PERCENT AUTO 1.1 % (0-6); HEMATOCRIT 30.2 % (42.0-52.0); HEMOGLOBIN 9.7 g/dL (14.0-18.0); IMMATURE GRAN ABSOLUTE AUTO 0.63 10^3/uL (0.00-0.49); IMMATURE GRAN PERCENT AUTO 5.1 % (0.0-4.9); LYMPHOCYTES ABSOLUTE AUTO 2.13 10^3/uL (0.60-5.00); LYMPHOCYTES PERCENT AUTO 17.2 % (24-44); MEAN CORPUSCULAR HEMOGLOBIN 26.1 pg (27.0-32.0); MEAN CORPUSCULAR HGB CONC 32.1 g/dL (32.0-36.0); MEAN CORPUSCULAR VOLUME 81.2 fL (83.0-97.0); MONOCYTES ABSOLUTE AUTO 0.81 10^3/uL (0.00-1.50); MONOCYTES PERCENT AUTO 6.6 % (0-10); NEUTROPHILS ABSOLUTE AUTO 8.63 x10^3/uL (1.80-8.00); NEUTROPHILS PERCENT AUTO 69.8 % (41-71); PLATELET COUNT,PLT 467 10^3/uL (150-400); RED BLOOD CELL COUNT 3.72 x10^6/uL (4.50-6.00); WHITE BLOOD CELL COUNT,WBC 12.4 10^3/uL (4.0-11.0)
[2024-02-23 14:59] LABS: ALBUMIN 2.4 g/dL (3.4-5.0); BILIRUBIN TOTAL 0.6 mg/dL (0.0-1.0); C-REACTIVE PROTEIN 16.66 mg/dL (<=0.50); CALCIUM 8.7 mg/dL (8.4-10.1); CREATININE 1.8 mg/dL (0.7-1.3); EST CRCL DRUG DOSING (CG) 20.6 mL/min; MAGNESIUM 2.1 mg/dL (1.8-2.4); POTASSIUM,K 4.8 mEq/L (3.5-5.0); PROTEIN TOTAL,TP 7.1 g/dL (6.4-8.2)
[2024-02-23] MEDS: Sodium Chloride 0.9% 1,000 ML IV ONE (15:29)
[2024-02-23] MEDS: cefTRIAXone 2 GM Vial IVPUSH ONE (17:39)
[2024-02-23] MEDS: Azithromycin 500 MG in Sodium Chloride 0.9% 250 ML IV SCH (17:40)
[2024-02-23 18:03] VITALS: BP 102/37; PULSE 68
== END 2024-02-23 19:12 ==
LOC: CC.ED 14:20
DX: J18.9 Pneumonia, unspecified organism (principal); J98.4 Other disorders of lung; I10 Essential (primary) hypertension; J44.9 Chronic obstructive pulmonary disease, unspecified; K21.9 Gastro-esophageal reflux disease without esophagitis; J45.909 Unspecified asthma, uncomplicated; Z79.51 Long term (current) use of inhaled steroids; Z79.82 Long term (current) use of aspirin; Z79.899 Other long term (current) drug therapy
CPT/HCPCS: 36415; 70490; 71250; 80053; 83605; 83735; 84484; 85025; 86140; 87040; 93005; 96361; 96365; 96375; 99285-25; J0456; J0696; J7030; J7050